=== PATIENT | female | born 1945 | race Caucasian/White ===

== ENCOUNTER 2016-11-12 16:07 | Emergency (ER) | payer MEDICARE, OTHER ==
--- NOTE | ~2016-11-12 | CR72 ---
[facility] A Service of [facility] RADIOLOGY TEXT RESULTS PATIENT: MAINOR SALGUERO LOCATION: [facility] : 43 UNIT #: [id number] AGE: [address]: Clark Grajeda MD SEX: F ORDER DR: [id number] [facility] [address]. [place], [place] [address] [id number] E MR#: [id number] Acc #: [id number] NAME: MAINOR SALGUERO : 1945 SEX: F STUDY DATE/TIME: 11/12/2016 15:48 UNIT: [facility] ROOM: STUDY DESCRIPTION: CR Chest Single View Portable Attending Physician: Clark Grajeda M.D. Referring Physician: Miguel Jimenez Sr., M.D. Ordering Physician: Clark Grajeda M.D. Primary Care Physician: Miguel Jimenez Sr., M.D. MEDICAL IMAGING REPORT This report is preliminary unless electronic signature is present EXAM Portable chest. DATE OF EXAM 11/12/2016 HISTORY Weakness today. FINDINGS The cardiac size and pulmonary vascularity are normal. No infiltrates or effusions. Calcified left hilar nodes. Old healed fractures lateral right fourth and fifth ribs. Old healed fracture deformity midshaft right clavicle. Mild gaseous distension of the colon in the upper abdomen. IMPRESSION 1. No acute findings. No evidence of active disease in the lungs. 2. Mild gaseous distension of the colon in the upper abdomen could reflect colonic ileus. 3. Old healed fracture deformity midshaft right clavicle and old fractures lateral right fourth and fifth ribs. Dictated by... Lanre Singh M.D. THIS IS AN ELECTRONICALLY VERIFIED REPORT Lanre Singh M.D. at 11/12/2016 11:25 PM MARCEL/matias TD: 11/12/2016 16:30 JOB #: [id number] [facility] A Service of [facility] RADIOLOGY TEXT RESULTS PATIENT: MAINOR SALGUERO LOCATION: [facility] #: [id number] : 43 UNIT #: [id number] AGE: [address]: Clark Grajeda MD SEX: F ORDER DR: MEDICAL IMAGING REPORT Page 1 of 1 COPY
--- NOTE | ~2016-11-12 | EKG ---
PATIENT: MAINOR SALGUERO UNIT #: [id number] Ventricular Rate: 77 BPM Atrial Rate: 77 BPM P-R Interval: 158 ms QRS Duration: 78 ms Q-T Interval: 370 ms QTC Calculation(Bezet): 418 ms P Stock[place]: 80 degrees Calculated R [place]: 56 degrees Calculated T Stock[place]: 61 degrees Diagnosis Line: Normal sinus rhythm Diagnosis Line: Normal ECG Diagnosis Line: When compared with ECG of 21-JUN-2016 14:00, Diagnosis Line: No significant change was found Diagnosis Line: Confirmed by CHANTALE RUIZ MD ([id number]) on 11/12/2016 Diagnosis Line: 9:24:07 PM INTERPRETING MD: JOSEPH HASSAN
--- NOTE | ~2016-11-12 | CT71 ---
[facility] A Service of [facility] RADIOLOGY TEXT RESULTS PATIENT: MAINOR SALGUERO LOCATION: [facility] : 43 UNIT #: [id number] AGE: [address]: Clark Grajeda MD SEX: F ORDER DR: [id number] [facility] [address] [place], [place] [address] [id number] E MR#: [id number] Acc #: [id number] NAME: MAINOR SALGUERO : 1945 SEX: F STUDY DATE/TIME: 11/12/2016 17:16 UNIT: [facility] ROOM: STUDY DESCRIPTION: CT Head Wo Contrast Attending Physician: Clark Grajeda M.D. Referring Physician: Miguel Jimenez Sr., M.D. Ordering Physician: Clark Grajeda M.D. Primary Care Physician: Miguel Jimenez Sr., M.D. MEDICAL IMAGING REPORT This report is preliminary unless electronic signature is present EXAM CT head without IV contrast. DATE OF EXAM 11/12/2016 COMPARISON September 19, 2014. INDICATIONS 71-year-old female with weakness since this morning. TECHNIQUE NOTE: This CT exam was performed with one or more of the following radiation dose reduction techniques: automatic exposure control, adjustment of mA and/or kV according to patient size, and iterative reconstruction. FINDINGS The globes have a persistent abnormal appearance with internal calcification. This patient also appears to have mildly asymmetric atrophy of the left optic nerve compared to the right. 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 Clinical correlation recommended. There is a persistent large right mastoid effusion with stable small right middle ear effusion. There is new thickening of the lott of the right external ear canal possibly reflecting otitis externa. There is mild mucosal thickening of the right maxillary sinus. No paranasal sinus air-fluid levels. Left mastoid air cells and middle ear are well-aerated aside for trace left mastoid effusion. No acute fractures or suspicious osseous lesions. No focal osseous destruction. There are calcifications of the cavernous internal carotid arteries. There is stable mild cerebral volume loss with disproportionate moderate to severe cerebellar volume loss. No mass effect. No abnormal extraaxial fluid collection. No evidence of acute STS. [facility] A Service of [facility] RADIOLOGY TEXT RESULTS PATIENT: MAINOR SALGUERO LOCATION: [facility] : 43 UNIT #: [id number] AGE: [address]: Clark Grajeda MD SEX: F ORDER DR: intracranial hemorrhage or acute intracranial ischemia. There is an extraaxial structure which appears partly calcified overlying the left parietal lobe, stable from comparison either representing a very small, partly calcified meningioma or possibly an exostosis from inner table of the calvaria. Focal hyperdensity, along one of the sulci of the temporal lobe posteriorly is stable from 2006 also possibly representing a small meningioma. This measures up to 4 mm. When allowing for motion, there are stable areas of focal white matter hypoattenuation and the subcortical left frontal lobe in the subcortical left temporal lobe most consistent with chronic small vessel ischemic change. No convincing evidence of acute ischemia. Similar area of subcortical hypoattenuation in the right temporal lobe is also stable, again consistent with small vessel ischemic change. IMPRESSION 1. New thickening of the skin of the right external ear canal possibly reflecting otitis externa. There is otherwise stable large right mastoid effusion and stable small right middle ear effusion. Clinical correlation to exclude signs of acute otitis media and/or mastoiditis on the right recommended. 2. Stable trace left mastoid effusion. 3. New mucosal thickening of the right maxillary sinus without air fluid level. 4. Stable mild cerebral volume loss and mild chronic small vessel ischemic changes as described in the body of the report. 5. Calcium densities in the extraaxial space along the left parietal and temporal lobes are stable going back to 2006, most likely reflecting very small, partly calcified meningiomas. 6. Stable abnormal appearance of the globes with internal calcifications and suggestion of optic nerve atrophy. 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 7. Stable asymmetric volume loss seen diffusely throughout the cerebellum as compared to the cerebrum, this is a finding which may be congenital or can be seen in chronic anticonvulsant medication. Dictated by... Donald Melendez M.D. THIS IS AN ELECTRONICALLY VERIFIED REPORT Donald Melendez M.D. at 11/17/2016 8:51 AM BLM/jt TD: 11/12/2016 19:23 JOB #: [id number] MEDICAL IMAGING REPORT Page 1 of 1 COPY
[~2016-11-12 16:07] MED LIST: ACETAMINOP650 MG/SU1 PR; ACETAMINOPHEN PO; ACETAMINOPHEN PR; ACETAMINOPHEN650 M1 PO; ACETAMINOPHEN650 M4 PO; APAP/CODEINE PO; AUGMENTIN PO; AURALGAN EAR DR14 ML OT; BACID; BISACODYL10 MG/SUPP PR; CALCIUM CITRATE1 T15 PO; CENTRUM PO; CERTAGEN PO; CIPRO PO; CITRACAL + D CA1 TA1; CITRACAL + D CA1 TA1 PO; CITRATE OF MAG296 ML PO; CLARITIN R10 MG REDI PO; COLACE PO; CYTOTEC PO; DIASTAT ACUDIAL1 KIT; DIASTAT ACUDIAL1 KIT PR; DIASTAT10 MG PR; DOK100 MG PO; DULCOLAX10 MG/SUPP; DULCOLAX10 MG/SUPP PR; ENEMA BAG1 EACH PR; FENOFIBRATE48 MG PO; FLAGYL PO; FLEET ENEMA133 M1 PR; FLEET MINERAL133 ML PR; FLOXIN10 ML; FLOXIN10 ML OT; FORTEO750 MCG/3 INJ; GABAPENTIN300 M2 PO; GAS RELIEF125 MG PO; GAS RELIEF40 MG/0.1 PO; GENTLE LAXATIVE10 MG RC; LACTULOSE10 G/15 ML PO; LAXATIVE10 MG/SUPP PR; LEVAQUIN PO; LEVO-T50 MCG PO; LEVOTHYROXINE50 MC1; MACRODANTIN50 MG; MEVACOR PO; MEVACOR10 MG; MIACALCIN4 ML; MILK OF MAGNESIA PO; MIRALAX17 GM PO; MIRALAX255 GM; MIRALAX255 GM PO; MYLICON40 MG/0.1 PO; MYLICON40 MG/0.6; MYLICON40 MG/0.6 PO; NASALIDE INHALE25 ML; NASALIDE INHALE25 ML INH; NASALIDE25 ML; NEURONTIN PO; NEURONTIN100 MG PO; NEURONTIN300 MG PO; OMEPRAZOLE20 M1 PO; OYSTER CALCIUM500 MG PO; PHENERGAN PR; PRAVACHOL20 MG PO; PREVACID PO; PRILOSEC PO; PRILOSEC20 M1; PRILOSEC20 MG PO; ROBITUSSIN-DM120 ML PO; SENNA; SENNA CONCENTR8.6 MG PO; SENNA PO; SENOKOT60 M1 PO; SENOKOT60 ML PO; SYNTHROID PO; SYNTHROID0.05 MG PO; SYNTHROID75 MCG PO; TRICOR PO; TYLENOL W-CODEI1 TAB PO; TYLENOL325 M1 PO; VICODIN 5/500 T1 TAB PO; VITAMIN C PO; VITAMIN C500 M1 PO; VITAMIN C500 MG PO; VITAMIN D 4001 UDTAB PO; VITAMIN D1000 UNI1 PO; VITAMIN D1000 UNIT; ZEBETA5 MG PO; ZYRTEC PO; [UNRECOGNIZED DRUG - OTHER]; [UNRECOGNIZED DRUG - OTHER]; [UNRECOGNIZED DRUG - OTHER] INH; [UNRECOGNIZED DRUG - OTHER] PO; [UNRECOGNIZED DRUG - OTHER] PO; [UNRECOGNIZED DRUG - OTHER] RC
[2016-11-12 16:57] LABS: POC - CKMB 1.5 ng/mL (0.0-7.9); POC - TROPONIN <0.05 ng/mL (<=0.05)
[2016-11-12 17:09] LABS: BASOPHIL# 0.1 X10e3 (0-0.3); EOSINOPHIL# 1.7 X10e3 (0-0.7); EOSINOPHIL% 21.4 % (0.0-7.0); HEMATOCRIT 40.8 % (35.0-45.0); HEMOGLOBIN 13.1 gm/dL (12.0-16.0); LYMPHOCYTE# 1.7 X10e3 (1.0-3.5); MEAN CELL VOLUME 91.3 FL (83-96); MEAN CORPUSCULAR HEMOGLOBIN 29.3 PG (28-34); MEAN CORPUSCULAR HGB CONC 32.1 g/dL (30-36); MEAN PLATELET VOLUME 9.1 FL (6.5-11.5); MONOCYTE# 0.4 X10e3 (0-1.0); MONOCYTE% 4.6 % (3.0-12.0); PLATELET COUNT 279 X10e3 (140-420); RED BLOOD COUNT 4.47 X10e (3.90-5.30); RED CELL DISTRIBUTION WIDTH 13.6 % (11.0-15.5); WHITE BLOOD COUNT 7.8 X10e3 (4.0-10.5)
[2016-11-12 17:11] LABS: DIFF IND YES
[2016-11-12 17:21] LABS: ALBUMIN SERUM 4.1 g/dL (3.5-5.0); BILIRUBIN, DIRECT 0.1 mg/dL (0.0-0.2); BILIRUBIN,INDIRECT 0.5 mg/dL (0.0-0.9); BILIRUBIN,TOTAL 0.6 mg/dL (0.2-2.0); CALCIUM SERUM 9.9 mg/dL (8.4-10.2); CREATININE SERUM 0.4 mg/dL (0.6-1.4); GLOM FILT RATE Estimated 103.4 mL/min (>60); POTASSIUM 3.9 mmol/L (3.5-5.1); PROTEIN TOTAL SERUM 8.5 g/dL (6.0-8.3)
[2016-11-12 17:50] LABS: PLATELET ESTIMATE NORMAL (NORMAL)
[2016-11-12 18:32] LABS: URINE SOURCE CLEAN CATCH
[2016-11-12 18:53] LABS: URINE APPEARANCE TURBID; URINE BILIRUBIN NEG (NEG); URINE BLOOD NEG (NEG); URINE COLOR YELLOW; URINE GLUCOSE NEG (NEG); URINE KETONE NEG (NEG); URINE LEUKOCYTE ESTERASE 3+ (NEG); URINE NITRATE POS (NEG); URINE PROTEIN NEG (NEG); URINE SPECIFIC GRAVITY 1.014 (1.003-1.035)
[2016-11-12 18:56] LABS: CULTURE INDICATED? YES; URBCS1 AUWI 0-2 /[HPF] (0-2); URINE SQUAMOUS EPITHELIAL CELL OCC /[HPF]
[2016-11-12 19:05] LABS: URINE BACTERIA AUWI 2+ (NEGATIVE)
[2016-11-12 19:30] LABS: POC - CKMB <1.0 ng/mL (0.0-7.9); POC - TROPONIN <0.05 ng/mL (<=0.05)
[2017-05-06] MEDS ORDERED: UTI-STAT L3875 MG/31 PO (04:37)
[2017-05-06] MEDS ORDERED: FIBER-STAT15 GM/30 M PO (04:38)
[2017-05-06] MEDS ORDERED: TOBRAMYCIN40 MG/1 ML IV (04:40)
[2017-05-06] MEDS ORDERED: AUGMENTIN PO (04:41)
[2017-05-06] MEDS ORDERED: PYRIDIUM PO (04:42)
[2017-05-06] MEDS ORDERED: RISA-BID CAPLE1 EAC1 PO (04:43)
[2017-05-06] MEDS ORDERED: MIRALAX17 G2 PO (04:46)
[2017-05-06] MEDS ORDERED: FAST RELIEF LAX10 MG PR (04:48)
[2017-05-06] MEDS ORDERED: CERTA VITE9 MG/15 ML PO (04:50)
[2017-05-06] MEDS ORDERED: FENOGLIDE40 MG PO (04:50)
[2017-05-06] MEDS ORDERED: LYRICA75 MG PO (04:51)
[2017-05-06] MEDS ORDERED: LEVOTHYROXINE50 MCG PO (04:51)
[2017-05-06] MEDS ORDERED: MELATONIN3 MG PO ×2 (04:52→09:28)
[2017-05-06] MEDS ORDERED: SENNA8.6 M1 PO (04:54)
[2017-05-06] MEDS ORDERED: OMEPRAZOLE20 M1 PO (04:54)
[2017-05-06] MEDS ORDERED: SILACE60 MG/15 M PO ×2 (04:55→09:30)
[2017-05-06] MEDS ORDERED: VITAMIN C500 M7 PO (04:59)
[2017-05-06] MEDS ORDERED: VITAMIN D31000 UNIT PO ×2 (05:00→09:30)
[2017-05-06] MEDS ORDERED: BISACODYL1 GM PR (09:23)
[2017-05-06] MEDS ORDERED: CERTAVITE PO (09:24)
[2017-05-06] MEDS ORDERED: FENOFIBRATE48 MG PO (09:24)
[2017-05-06] MEDS ORDERED: FISH OIL 1,0001 EAC3 PO (09:25)
[2017-05-06] MEDS ORDERED: SYNTHROID25 MCG PO (09:25)
[2017-05-06] MEDS ORDERED: GAS RELIEF40 MG/0.1 PO (09:25)
[2017-05-06] MEDS ORDERED: HEPARIN LO (09:25)
[2017-05-06] MEDS ORDERED: LYRICA PO (09:25)
[2017-05-06] MEDS ORDERED: PRILOSEC PO (09:28)
[2017-05-06] MEDS ORDERED: MIRALAX119 GM PO (09:29)
[2017-05-06] MEDS ORDERED: MIRALAX17 GM PO (09:30)
[2017-05-06] MEDS ORDERED: VITAMIN C500 MG PO (09:30)
[2017-05-06] MEDS ORDERED: ZYRTEC10 M2 PO (09:31)
[2017-05-06] MEDS ORDERED: TYLENOL #3 PO (09:31)
[2017-05-06] MEDS ORDERED: ENEMA BOTTLE1 EACH PR (09:32)
[2017-05-06] MEDS ORDERED: SALINE NOSE SPR45 M1 (09:32)
[2017-05-06] MEDS ORDERED: [UNRECOGNIZED DRUG - OTHER] TOP (09:33)
[2017-05-06] MEDS ORDERED: NEOSPORIN TOP (09:33)
[2017-05-06] MEDS ORDERED: PATIENT'S PHARMACY (09:34)
== END 2016-11-12 22:20 | disposition home or self-care (01) ==
LOC: CED 16:07
PROVIDERS: Emergency Medicine
DX: N39.0 Urinary tract infection, site not specified (principal); R41.82 Altered mental status, unspecified; G40.909 Epilepsy, unspecified, not intractable, without status epilepticus
CPT/HCPCS: 36415; 51702; 70450; 71010; 80048; 80076; 81003; 82553; 82947; 84484; 85025; 87086; 87088; 87186; 93005; 99284; J0696

== ENCOUNTER 2016-11-25 05:30 | Inpatient (IN) | payer MEDICARE, OTHER ==
--- NOTE | ~2016-11-25 | DS ---
Unit #: [id number] #: [id number] Patient: MAINOR SALGUERO [id number] [address] [address] [id number] I MR#: [id number] NAME: MAINOR SALGUERO ROOM: 229 Age: 71 Sex: F Admission Date: 11/25/2016 : 1945 Discharge Date: 11/28/2016 Attending Physician: Josephine Em M.D. Primary Care Physician: Miguel Jimenez Sr., M.D. DISCHARGE SUMMARY FINAL DIAGNOSES 1. Fever which is resolved. 2. Possibility of urinary tract infection on admission with urinalysis showing 2+ leukocyte esterase but urine culture is negative. Please note patient received IV Rocephin during hospitalization, which is being discontinued at this time. 3. 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 4. Chronic mucoid otitis media. 5. Seizure disorder. 6. Mental retardation. 7. Hypothyroidism. DISCHARGE MEDICATIONS Continue home medications which are: 1. Vitamin D 2,000 units daily. 2. Fish oil capsule twice a day. 3. Vitamin C 500 mg daily. 4. Levothyroxine 50 mcg daily. 5. Calcium citrate and vitamin D one tablet b.i.d. 6. Omeprazole 20 mg daily. 7. Tylenol #3 b.i.d. as needed. 8. Multivitamin daily. 9. Fenofibrate 48 mg daily. 10. Senna four tablets b.i.d. 11. MiraLax 17 g t.i.d. 12. Colace 100 mg b.i.d. 13. Dulcolax as needed. 14. Cetirizine 10 mg daily. 15. Mylicon 1.5 mL p.o. q.i.d. 16. Neurontin 100 mg b.i.d. 17. Tylenol 650 mg q.6 p.r.n. 18. Maybe continue IV Merrem as suggested by ENT, Dr. Roberson. LAB WORKUP ON DISCHARGE CBC shows WBC 4.6, hemoglobin 12.1, hematocrit 37.1, platelet count 297. BMP shows sodium 143, potassium 4.2, chloride 107, BUN 21, creatinine 0.5, calcium 9.8, procalcitonin level less than 0.05. Lactic acid 0.8. Urine culture is no growth. Blood culture is normal. Chest x-ray was done on 11/25 which shows no active disease. Influenza A and B were done which were negative. HOSPITAL COURSE Ms. Mainor Salguero is a 71-year-old female, who is a resident of [facility], has a history of seizure disorder, profound mental retardation, Unit #: [id number] #: [id number] Patient: MAINOR SALGUERO hypothyroidism. The patient was sent from [facility] because of high fever. The patient was seen in ER and the patient's temp was 100.6 on admission and, since then, she has not spiked any temperature. There was a possibility of urinary tract infection. The patient was started on IV Rocephin and she has received it for the last three days. Urine culture was done which is no growth at this time. Blood cultures showed no growth. The patient has no leukocytosis. She is afebrile. We are going to discontinue IV Rocephin at this time. The patient has a history of chronic mastoiditis and right otitis media. The patient was receiving IV Merrem at [facility] as per Dr. Gamboa. I have reviewed the records and it seems like this is chronic but would advise to continue antibiotics if needed as requested by Dr. Roberson ENT. VITAL SIGNS ON DISCHARGE: Blood pressure 115/59. Respiratory rate 18. Pulse 63. Temperature 98.2. CHEST: Fair air entry. CARDIOVASCULAR: S1, S2. Regular rhythm. ABDOMEN: Soft. DISCHARGE INSTRUCTIONS 1. The patient is being discharged to [facility] in stable condition. 2. We have discontinued IV Rocephin at this time. 3. Followup ENT, Dr. Roberson, recommendation and follow up as needed. Dictated by... Rachel Silver TD: 11/28/2016 13:28 JOB #: [id number] DISCHARGE SUMMARY Page 1 of 1 X Josephine Em MD X DISCHARGE SUMMARY
--- NOTE | ~2016-11-25 | CR72 ---
[facility] A Service of [facility] RADIOLOGY TEXT RESULTS PATIENT: MAINOR SALGUERO LOCATION: [facility] : 43 UNIT #: [id number] AGE: [address]: Kings Hdez MD SEX: F ORDER DR: [id number] [facility] [address] [place], [place] [address] [id number] E MR#: [id number] Acc #: [id number] NAME: MAINOR SALGUERO : 1945 SEX: F STUDY DATE/TIME: 11/25/2016 5:45 UNIT: [facility] ROOM: STUDY DESCRIPTION: CR Chest Single View Portable Attending Physician: Kings Hdez M.D. Ordering Physician: Jigar Finnegan M.D. Primary Care Physician: Miguel Jimenez Sr., M.D. MEDICAL IMAGING REPORT This report is preliminary unless electronic signature is present EXAM Portable chest HISTORY Fever and shortness of air that started last night.. FINDINGS A portable view of the chest was obtained and compared with 11/12/16. The heart size and vascularity are normal. There is slight volume loss in the right hemithorax. Prior rib trauma. No infiltrates are visible. There has been no change. IMPRESSION No change from 11/12/16. No active disease. Dictated by... Alonso Hernandez M.D. THIS IS AN ELECTRONICALLY VERIFIED REPORT Alonso Hernandez M.D. at 11/25/2016 11:44 AM ANNABELLE/tamara TD: 11/25/2016 07:34 JOB #: [id number] MEDICAL IMAGING REPORT Page 1 of 1 COPY
--- NOTE | ~2016-11-25 | HP ---
Unit #: [id number] #: [id number] Patient: MAINOR SALGUERO [id number] [address] [place], [place] [address] [id number] I MR#: [id number] NAME: MAINOR SALGUERO ROOM: 229 Age: 71 Sex: F Admission Date: 11/25/2016 : 1945 Attending Physician: Josephine Em M.D. Primary Care Physician: Miguel Jimenez Sr., M.D. HISTORY AND PHYSICAL CHIEF COMPLAINT Fevers. HISTORY OF PRESENTING ILLNESS Miss Mainor Salguero is a 71-year-old female who has multiple medical problems and is a resident of [facility]. She was sent at 2 a.m. this morning for high fever. As per sitter, patient had a temperature of 103 last night. She was started on Merrem for questionable mastoiditis. This morning her fever would not get better, and that is why she was sent to the ER. On admission, patient's temperature was 100.6. The patient is not able to provide any history, and most of the history has been taken from the chart and from sitter. There is no history of nausea or vomiting and no history of any diarrhea. Patient does follow up with ENT physician and has chronic mucoid otitis media and also has chronic mastoiditis on the right side. Patient follows up with Dr. Roberson who is an ENT specialist. PAST MEDICAL HISTORY 1. History of mental retardation. 2. Seizure disorder. 3. Hypothyroidism. 4. History of colonic ileus in the past. 5. History of multiple UTIs in the past. 6. Chronic otitis media and chronic mastoiditis. PAST SURGICAL HISTORY 1. Sigmoidoscopy. 2. EGD. 3. 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 HOME MEDICATIONS 1. Dulcolax at bedtime p.r.n. 2. Tylenol 650 daily p.r.n. 3. Calcium citrate 1 twice daily. 4. Centrum 1 tablet daily. 5. Allergy pill cetirizine daily. 6. Colace 100 mg twice daily. 7. Fenofibrate 48 mg daily. 8. Neurontin 100 mg twice daily. 9. Mylicon 1.5 at 4 times daily. 10. Fish oil capsule twice daily. 11. Omeprazole 20 mg daily. 12. MiraLax 17 grams 3 times daily. 13. Senna 4 tablets twice daily. Unit #: [id number] #: [id number] Patient: MAINOR SALGUERO 14. Vitamin C 500 mg daily. 15. Vitamin D 2000 units daily. ALLERGIES SULFA MEDICATION. SOCIAL HISTORY Patient is a resident of [facility]. FAMILY HISTORY Unknown. REVIEW OF SYSTEMS As per History of Presenting Illness. PHYSICAL EXAMINATION GENERAL: Patient is lying in bed and does not seem to be in any respiratory distress. VITAL SIGNS: Blood pressure is 103/48, respiratory rate 20, pulse 75, temperature 98.8, and T-max was 100.6. HEENT: Head is normocephalic. CHEST: Fair air entry. No additional sounds. CARDIOVASCULAR: S1 and S2 positive. Regular rhythm. ABDOMEN: Soft. EXTREMITIES: Negative edema. Contractures are present. CENTRAL NERVOUS SYSTEM: Patient is nonverbal. DIAGNOSTIC STUDIES LABORATORY: CBC shows WBC of 12.4, hemoglobin 12.3, hematocrit 37.8, and platelet count of 295,000. Sodium 136, potassium 3.9, chloride 100, BUN 23, and creatinine 0.7. Influenza A and B are negative. Urinalysis was done which showed 2+ leukocyte esterase. Lactic acid 0.7. IMAGING: Chest x-ray shows normal. No active disease. ASSESSMENT Patient is being admitted to medical/surgical unit with: 1. Fever. 2. Urinary tract infection. 3. Chronic mastoiditis. 4. Chronic mucoid otitis media. 5. Seizure disorder. 6. Mental retardation. 7. Hypothyroidism. PLAN Admit to med/surg. IV Rocephin is being started. Blood cultures will be done. Urine culture will be sent. Home medications have been reviewed and adjusted. Note from ENT has been evaluated which states that patient does have chronic mastoiditis and chronic serous otitis media. Continue tube feeds as per [place] facility. Medication check has been done. Please refer to progress note for further orders. Dictated by Rachel Silver Unit #: [id number] #: [id number] Patient: MAINOR SALGUERO TD: 11/25/2016 22:02 JOB #: [id number] HISTORY AND PHYSICAL Page 1 of 1 X Josephine Em MD HISTORY AND PHYSICAL
--- NOTE | ~2016-11-25 | A ---
[facility] Nutrition Therapy DATE: 11/26/16 Patient: MAINOR SALGUERO Physician: ANTONIO Address: [facility]/ Room/Bed: [address] [place] [address], Zip: [place] [address] Admit Date: 11/25/16 Date of : 43 Height: 5 0 Weight: 83 37.9 NUTRITIONAL ASSESSMENT: REASON: LOW BMI PT IS 71 Y.O. FEMALE ADMITTED FOR UTI, FEVER PMH: PROFOUND MENTAL RETARDATION, BLINDESS, DEAF, SEIZURE DISORDER, HLD, DYSPHAGIA, GERD, HYPOTHYROIDISM, COLONIC ILEUS Anthropometrics: 57 INCHES PER [facility], WT: 83# (38 KG), BMI: 18.0, 92%IBW Labs: WNL Meds: MIRALAX, SENOKOT, FISH OIL, COLACE, OS-DIEUDONNE 500+D, PROTONIX, ASCORBIC ACID, SYNTHROID (PO), NACL I/O & Bowel function: 0/5, 2 BMs NOTED Skin Integrity: INTACT Estimated Nutrition Needs: INCREASED NUTRIENT NEEDS 2' PT UNDERWEIGHT, CURRENT CONDITION Assessment: CHART REVIEWED AND EVENTS NOTED. PT SEEN FOR LOW BMI. OF NOTE, PT NON-VERBAL FROM [facility] TRANSFERRED TO [facility] FOR UTI AND FEVER. PT RECEIVES HOME DIET OF PUREED + NECTAR THICK LIQUIDS. PER RN, PT TOOK BITES OF BREAKFAST AND DRANK ALL OF HER LIQUIDS ON TRAY. PER [employer], PT WEIGHTS HAVE BEEN STABLE. RD ASSESSED PT ON 04/22/16 AND ORDERED ENSURE PUDDING, WILL ORDER AT THIS ADMIT. RD TO FOLLOW. SEE RECOMMENDATIONS BELOW. Dx: UNDERWEIGHT R/T PMH AEB LOW BMI OF 18.0. -INADEQUATE NUTRIENT INTAKE R/T CURRENT CONDITION AEB RN REPORT ABOVE PT TAKING BITES OF FOODS. Intervention: 1. PUREED + HONEY-THICK LIQUID + 6 SMALL MEALS 2. ENSURE PUDDING BID Monitoring, Evaluation and Goals: 1. PO INTAKE; PROVIDE AND CONSUME ADEQUATE NUTRITION W/NO C/O N/V/D (PO>50%) 2. WEIGHTS; PROMOTE GRADUAL WEIGHT GAIN; PREVENT ANY WEIGHT LOSS 3. GI; PROMOTE REGULAR GI FUNCTION MONITOR: -PO INTAKE/APPETITE [facility] Nutrition Therapy DATE: 11/26/16 Patient: MAINOR SALGUERO Physician: ANTONIO Address: [facility] Room/Bed: [address], Zip: [place] [address] Admit Date: 11/25/16 Date of : 43 Height: 5 0 Weight: 83 37.9 -WEIGHTS -SUPPLEMENT INTAKE Recommendations: 1. CONTINUE CURRENT DIET ORDER ABOVE. OF NOTE, PT RECEIVES NECTAR THICK LIQUIDS AT [facility] 2. PLEASE ORDER ENSURE PUDDING BID W/MEALS FOR ADDITIONAL PROTEIN AND KCAL PT IS CLINICALLY UNDERWEIGHT 3. APPRECIATE FAMILY AND STAFF TO ENCOURAGE ADEQUATE KCAL AND PROTEIN INTAKE RD WILL F/U PER PROTOCOL PT IS MODERATELY COMPROMISED Respectfully, KEYONNA NATHAN MS, RD, LD Food and Nutritional Services [facility] cc: client file
[2016-11-25 05:20] LABS: HEMATOCRIT 37.8 % (35.0-45.0); HEMOGLOBIN 12.3 gm/dL (12.0-16.0); MEAN CELL VOLUME 90.6 FL (83-96); MEAN CORPUSCULAR HEMOGLOBIN 29.6 PG (28-34); RED BLOOD COUNT 4.17 X10e (3.90-5.30); WHITE BLOOD COUNT 12.4 X10e3 (4.0-10.5)
[2016-11-25 05:21] LABS: BASOPHIL# 0.1 X10e3 (0-0.3); BASOPHIL% 0.4 % (0-2.5); EOSINOPHIL# 0.6 X10e3 (0-0.7); EOSINOPHIL% 4.5 % (0.0-7.0); LYMPHOCYTE# 1.2 X10e3 (1.0-3.5); MEAN CORPUSCULAR HGB CONC 32.7 g/dL (30-36); MEAN PLATELET VOLUME 9.4 FL (6.5-11.5); MONOCYTE# 0.8 X10e3 (0-1.0); MONOCYTE% 6.8 % (3.0-12.0); NEUTROPHIL# 9.7 X10e3 (1.5-7.1); NEUTROPHIL% 78.3 % (40-75); PLATELET COUNT 295 X10e3 (140-420)
[2016-11-25 05:23] LABS: DIFF IND NO
[2016-11-25 05:52] LABS: BUN/CREATININE RATIO 32.85; CALCIUM SERUM 9.5 mg/dL (8.4-10.2); CREATININE SERUM 0.7 mg/dL (0.6-1.4); POTASSIUM 3.9 mmol/L (3.5-5.1)
[2016-11-25 07:42] LABS: INFLUENZA A NEG (NEG); INFLUENZA B NEG (NEG)
[2016-11-25 07:51] LABS: URINE APPEARANCE CLOUDY; URINE BILIRUBIN NEG (NEG); URINE BLOOD NEG (NEG); URINE COLOR YELLOW; URINE GLUCOSE NEG (NEG); URINE KETONE NEG (NEG); URINE LEUKOCYTE ESTERASE 2+ (NEG); URINE NITRATE NEG (NEG); URINE PH 6.5 (5-8); URINE PROTEIN TRACE (NEG); URINE SPECIFIC GRAVITY 1.016 (1.003-1.035); URINE UROBILINOGEN 0.2 MG/DL (NEG)
[2016-11-25 07:54] LABS: CULTURE INDICATED? YES; URINE BACTERIA AUWI NEG (NEGATIVE); URINE SQUAMOUS EPITHELIAL CELL FEW /[HPF]
[2016-11-25 08:07] LABS: URINE SOURCE CATH
[2016-11-25] MEDS ORDERED: DULCOLAX10 MG PR (12:04)
[2016-11-25] MEDS ORDERED: ACETAMINOPHEN650 M3 PO ×2 (12:05→12:19)
[2016-11-25] MEDS ORDERED: CALCIUM CITRAT1 EAC2 PO (12:06)
[2016-11-25] MEDS ORDERED: CENTRUM PO (12:06)
[2016-11-25] MEDS ORDERED: DOCUSATE SODIU100 MG PO (12:07)
[2016-11-25] MEDS ORDERED: ALL DAY ALLERGY10 M3 PO (12:07)
[2016-11-25] MEDS ORDERED: FENOFIBRATE48 MG PO (12:08)
[2016-11-25] MEDS ORDERED: NEURONTIN100 MG PO (12:08)
[2016-11-25] MEDS ORDERED: NEURONTIN600 MG PO (12:09)
[2016-11-25] MEDS ORDERED: MYLICON40 MG/0.1 PO (12:10)
[2016-11-25] MEDS ORDERED: FISH OIL 1,0001 EAC1 PO (12:11)
[2016-11-25] MEDS ORDERED: OMEPRAZOLE20 M2 PO (12:11)
[2016-11-25] MEDS ORDERED: MIRALAX17 GM PO (12:13)
[2016-11-25] MEDS ORDERED: SENNA8.6 M1 PO (12:15)
[2016-11-25] MEDS ORDERED: VITAMIN C500 M1 PO (12:15)
[2016-11-25] MEDS ORDERED: VITAMIN D2000 UNIT PO (12:16)
[2016-11-25] MEDS ORDERED: TIROSINT50 MCG PO (12:17)
[2016-11-25] MEDS ORDERED: FEVERALL650 MG PR (12:20)
[2016-11-25] MEDS ORDERED: TYLENOL #3 PO (12:25)
[2016-11-27 06:13] LABS: HEMATOCRIT 37.2 % (35.0-45.0); HEMOGLOBIN 11.9 gm/dL (12.0-16.0); MEAN CELL VOLUME 91.2 FL (83-96); MEAN CORPUSCULAR HEMOGLOBIN 29.2 PG (28-34); MEAN CORPUSCULAR HGB CONC 32.1 g/dL (30-36); MEAN PLATELET VOLUME 9.1 FL (6.5-11.5); RED BLOOD COUNT 4.08 X10e (3.90-5.30); RED CELL DISTRIBUTION WIDTH 13.6 % (11.0-15.5); WHITE BLOOD COUNT 5.6 X10e3 (4.0-10.5)
[2016-11-27 06:54] LABS: BLOOD UREA NITROGEN 21 mg/dL (9-23); CALCIUM SERUM 9.8 mg/dL (8.4-10.2); CARBON DIOXIDE 27 mmol/L (22-31); CHLORIDE 107 mmol/L (100-111); CREATININE SERUM 0.5 mg/dL (0.6-1.4); GLUCOSE FASTING 83 mg/dL (70-110); POTASSIUM 4.2 mmol/L (3.5-5.1); SODIUM 143 mmol/L (135-145)
[2016-11-27 07:40] LABS: PROCALCITONIN <0.05 NG/ML
[2016-11-28 09:28] LABS: EOSINOPHIL# 0.7 X10e3 (0-0.7); EOSINOPHIL% 15.4 % (0.0-7.0); HEMATOCRIT 37.1 % (35.0-45.0); HEMOGLOBIN 12.1 gm/dL (12.0-16.0); LYMPHOCYTE% 43.1 % (17.0-45.0); MEAN CELL VOLUME 90.8 FL (83-96); MEAN CORPUSCULAR HEMOGLOBIN 29.5 PG (28-34); MEAN CORPUSCULAR HGB CONC 32.5 g/dL (30-36); MEAN PLATELET VOLUME 8.9 FL (6.5-11.5); MONOCYTE# 0.4 X10e3 (0-1.0); MONOCYTE% 7.9 % (3.0-12.0); NEUTROPHIL# 1.5 X10e3 (1.5-7.1); NEUTROPHIL% 32.6 % (40-75); PLATELET COUNT 297 X10e3 (140-420); RED BLOOD COUNT 4.09 X10e (3.90-5.30); WHITE BLOOD COUNT 4.6 X10e3 (4.0-10.5)
[2016-11-28 09:33] LABS: DIFF IND NO
[2017-05-06] MEDS ORDERED: UTI-STAT L3875 MG/31 PO (04:37)
[2017-05-06] MEDS ORDERED: FIBER-STAT15 GM/30 M PO (04:38)
[2017-05-06] MEDS ORDERED: TOBRAMYCIN40 MG/1 ML IV (04:40)
[2017-05-06] MEDS ORDERED: AUGMENTIN PO (04:41)
[2017-05-06] MEDS ORDERED: PYRIDIUM PO (04:42)
[2017-05-06] MEDS ORDERED: RISA-BID CAPLE1 EAC1 PO (04:43)
[2017-05-06] MEDS ORDERED: MIRALAX17 G2 PO (04:46)
[2017-05-06] MEDS ORDERED: FAST RELIEF LAX10 MG PR (04:48)
[2017-05-06] MEDS ORDERED: CERTA VITE9 MG/15 ML PO (04:50)
[2017-05-06] MEDS ORDERED: FENOGLIDE40 MG PO (04:50)
[2017-05-06] MEDS ORDERED: LYRICA75 MG PO (04:51)
[2017-05-06] MEDS ORDERED: LEVOTHYROXINE50 MCG PO (04:51)
[2017-05-06] MEDS ORDERED: MELATONIN3 MG PO ×2 (04:52→09:28)
[2017-05-06] MEDS ORDERED: SENNA8.6 M1 PO (04:54)
[2017-05-06] MEDS ORDERED: OMEPRAZOLE20 M1 PO (04:54)
[2017-05-06] MEDS ORDERED: SILACE60 MG/15 M PO ×2 (04:55→09:30)
[2017-05-06] MEDS ORDERED: VITAMIN C500 M7 PO (04:59)
[2017-05-06] MEDS ORDERED: VITAMIN D31000 UNIT PO ×2 (05:00→09:30)
[2017-05-06] MEDS ORDERED: BISACODYL1 GM PR (09:23)
[2017-05-06] MEDS ORDERED: FENOFIBRATE48 MG PO (09:24)
[2017-05-06] MEDS ORDERED: CERTAVITE PO (09:24)
[2017-05-06] MEDS ORDERED: SYNTHROID25 MCG PO (09:25)
[2017-05-06] MEDS ORDERED: GAS RELIEF40 MG/0.1 PO (09:25)
[2017-05-06] MEDS ORDERED: FISH OIL 1,0001 EAC3 PO (09:25)
[2017-05-06] MEDS ORDERED: LYRICA PO (09:25)
[2017-05-06] MEDS ORDERED: HEPARIN LO (09:25)
[2017-05-06] MEDS ORDERED: PRILOSEC PO (09:28)
[2017-05-06] MEDS ORDERED: MIRALAX119 GM PO (09:29)
[2017-05-06] MEDS ORDERED: VITAMIN C500 MG PO (09:30)
[2017-05-06] MEDS ORDERED: MIRALAX17 GM PO (09:30)
[2017-05-06] MEDS ORDERED: TYLENOL #3 PO (09:31)
[2017-05-06] MEDS ORDERED: ZYRTEC10 M2 PO (09:31)
[2017-05-06] MEDS ORDERED: SALINE NOSE SPR45 M1 (09:32)
[2017-05-06] MEDS ORDERED: ENEMA BOTTLE1 EACH PR (09:32)
[2017-05-06] MEDS ORDERED: [UNRECOGNIZED DRUG - OTHER] TOP (09:33)
[2017-05-06] MEDS ORDERED: NEOSPORIN TOP (09:33)
[2017-05-06] MEDS ORDERED: PATIENT'S PHARMACY (09:34)
== END 2016-11-28 14:36 | DRG 689 ==
LOC: CED 05:30 → CEDOF 12:15 → C2A 18:24
PROVIDERS: Emergency Medicine; Hospitalist; Physician Assistant Medical
DX: N39.0 Urinary tract infection, site not specified (principal); R53.2 Functional quadriplegia; F73 Profound intellectual disabilities; G40.909 Epilepsy, unspecified, not intractable, without status epilepticus; Z68.1 Body mass index [BMI] 19.9 or less, adult; H65.31 Chronic mucoid otitis media, right ear; H70.11 Chronic mastoiditis, right ear; E03.9 Hypothyroidism, unspecified; R63.6 Underweight
CPT/HCPCS: 36415; 51701; 71010; 80048; 81003; 82308; 83605; 85025; 85027; 87040; 87086; 87804; 99285; J0696; J1650

== ENCOUNTER → 2016-12-01 | Outpatient (CLI) | payer MEDICARE, OTHER ==
[~2016-12-01] MED LIST changes: +ACETAMINOPHEN650 M3 PO; +ALL DAY ALLERGY10 M3 PO; +APAP325 M1 PO; +BISACODYL1 GM PR; +CALCIUM CITRAT1 EAC2 PO; +CERTA VITE9 MG/15 ML PO; +CERTAVITE PO; +CIPRO HC OTIC S10 ML AD; +DEEP SEA NASAL SPRAY; +DOCUSATE SODIU100 MG PO; +DULCOLAX10 MG PR; +ENEMA BOTTLE1 EACH PR; +FAST RELIEF LAX10 MG PR; +FENOGLIDE40 MG PO; +FEVERALL650 MG PR; +FIBER-STAT15 GM/30 M PO; +FISH OIL 1,0001 EAC1 PO; +FISH OIL 1,0001 EAC3 PO; +HEPARIN LO; +LEVOTHYROXINE50 MCG PO; +LYRICA PO; +LYRICA75 MG PO; +MELATONIN3 MG PO; +MIRALAX119 GM PO; +MIRALAX17 G2 PO; +NEOSPORIN TOP; +NEURONTIN600 MG PO; +OMEGA 3 1,0001 EACH PO; +OMEPRAZOLE20 M2 PO; +PATIENT'S PHARMACY; +PYRIDIUM PO; +RISA-BID CAPLE1 EAC1 PO; +SALINE NOSE SPR45 M1; +SENNA8.6 M1 PO; +SILACE60 MG/15 M PO; +SYNTHROID25 MCG PO; +TIROSINT50 MCG PO; +TOBRAMYCIN40 MG/1 ML IV; +TYLENOL #3 PO; +UTI-STAT L3875 MG/31 PO; +VITAMIN C500 M7 PO; +VITAMIN D2000 UNIT PO; +VITAMIN D31000 UNIT PO; +ZYRTEC10 M1 PO; +ZYRTEC10 M2 PO; +[UNRECOGNIZED DRUG - MIXTURE]; +[UNRECOGNIZED DRUG - OTHER] PR; +[UNRECOGNIZED DRUG - OTHER] TOP
--- NOTE | ~2016-12-01 | XA166 ---
[facility] A Service of [facility] RADIOLOGY TEXT RESULTS PATIENT: MAINOR SALGUERO LOCATION: [facility] : 43 UNIT #: [id number] AGE: [address]: JEN HOFFMANN SEX: F ORDER DR: [id number] [facility] [address] [place], [place] [address] [id number] O MR#: [id number] Acc #: [id number] NAME: MAINOR SALGUERO : 1945 SEX: F STUDY DATE/TIME: 12/01/2016 11:47 UNIT: [facility] ROOM: STUDY DESCRIPTION: XA PICC Line Placement WO Port Attending Physician: Jen Hoffmann Referring Physician: Jen Hoffmann Primary Care Physician: Miguel Jimenez Sr., M.D. MEDICAL IMAGING REPORT This report is preliminary unless electronic signature is present EXAM PICC line placement HISTORY Need for IV access in a [place] patient who requires antibiotics. She has a history of fever and shortness of breath. PRE-PROCEDURE The procedure was explained to the patient and/or patient outside sales account representative including risks, benefits, potential complications and potential for alternative forms of treatment. Informed consent was obtained, and prior to initiating the procedure a formal timeout procedure was performed. PROCEDURE Using full standard sterile barrier technique, including caps, gowns, gloves, masks, as well as sterile skin preparation and standard sterile draping, the arm was prepped and draped in the usual fashion, and real-time sterile ultrasound guidance was used to localize an arm vein and to confirm vessel patency. A hard copy ultrasound image was recorded. After local anesthesia with 1% Xylocaine, the vein was punctured using real-time sterile ultrasound guidance, and an 0.018 guidewire was advanced into the superior vena cava, using fluoroscopic guidance. A 4-Omani single lumen PICC was then measured and deployed with the tip positioned in the superior vena cava. The position of the line was documented with a radiographic image. The line was secured in place with an adhesive dressing and an antibiotic patch was applied. Total fluoro time was 0.1 minutes. Ak was 1 mGy. IMPRESSION Successful placement of a 4-Omani single-lumen PowerPICC via the right arm under ultrasound and fluoroscopic guidance. The tip of the PICC is in STS. [facility] A Service of [facility] RADIOLOGY TEXT RESULTS PATIENT: MAINOR SALGUERO LOCATION: [facility] : 43 UNIT #: [id number] AGE: [address]: JEN HOFFMANN SEX: F ORDER DR: good position in the superior vena cava. Dictated by... Modesta Woodson M.D. THIS IS AN ELECTRONICALLY VERIFIED REPORT Modesta Woodson M.D. at 12/02/2016 12:55 PM SAHARA/tamara TD: 12/02/2016 09:53 JOB #: [id number] MEDICAL IMAGING REPORT Page 1 of 1 COPY
== END | disposition home or self-care (01) ==
LOC: CIVR 10:53
PROC: 02HV33Z Insertion of Infusion Device into Superior Vena Cava, Percutaneous Approach (ICD-10-PCS; principal; 2016-12-01)
DX: Z45.2 Encounter for adjustment and management of vascular access device (principal); H70.10 Chronic mastoiditis, unspecified ear; H66.91 Otitis media, unspecified, right ear; J98.11 Atelectasis; K59.39 Other megacolon; K59.00 Constipation, unspecified
CPT/HCPCS: 76937; 77001; C1751; J1642

== ENCOUNTER → 2016-12-23 | Outpatient (CLI) | payer MEDICARE, OTHER ==
--- NOTE | ~2016-12-23 | CT71 ---
[facility] A Service of [facility] RADIOLOGY TEXT RESULTS PATIENT: MAINOR SALGUERO LOCATION: [facility] : 43 UNIT #: [id number] AGE: [address]: JEN HOFFMANN SEX: F ORDER DR: [id number] [facility] [address] [place], [place] [address] [id number] O MR#: [id number] Acc #: [id number] NAME: MAINOR SALGUERO : 1945 SEX: F STUDY DATE/TIME: 12/23/2016 11:03 UNIT: [facility] ROOM: STUDY DESCRIPTION: CT Head Wo Contrast Attending Physician: Jen Hoffmann Referring Physician: Jen Hoffmann Primary Care Physician: Miguel Jimenez Sr., M.D. MEDICAL IMAGING REPORT This report is preliminary unless electronic signature is present EXAM Head CT no contrast DATE OF STUDY 12/23/2016 PROCEDURE Axial unenhanced head CT. This CT exam was performed with one or more of the following radiation dose reduction techniques: automatic exposure control, adjustment of mA and/or kV according to patient size, and iterative reconstruction. COMPARISON Prior head CT 11/12/2016. CLINICAL HISTORY Recent diagnosis of right mastoiditis treated with myringotomy. No new symptoms. Routine follow-up. FINDINGS Persistent stable opacification of the right mastoids, with slightly improved pneumatization of the right middle ear on these head CT images. No bone erosion or destruction. There is profound cerebellar atrophy and moderate cerebral volume loss but no acute intracranial abnormality. IMPRESSION 1. Persistent right mastoid air cell opacification, perhaps slightly improved right middle ear aeration on the current CT when compared to 11/12/2016. Chronic changes Intracranially appear stable. 2. Mild motion degradation. [facility] A Service [facility] RADIOLOGY TEXT RESULTS PATIENT: MAINOR SALGUERO LOCATION: [facility] : 43 UNIT #: [id number] AGE: [address]: JEN HOFFMANN SEX: F ORDER DR: Dictated by... Rob Prince M.D. THIS IS AN ELECTRONICALLY VERIFIED REPORT Rob Prince M.D. at 12/25/2016 3:58 PM TEV/aa TD: 12/23/2016 16:11 JOB #: [id number] MEDICAL IMAGING REPORT Page 1 of 1 COPY
== END | disposition home or self-care (01) ==
LOC: CCAT 10:20
DX: H70.11 Chronic mastoiditis, right ear (principal); R93.8 Abnormal findings on diagnostic imaging of other specified body structures
CPT/HCPCS: 70450

== ENCOUNTER 2017-01-14 18:29 | Emergency (ER) | payer MEDICARE, OTHER ==
--- NOTE | ~2017-01-14 | CR72 ---
[facility] A Service of [facility] RADIOLOGY TEXT RESULTS PATIENT: MAINOR SALGUERO LOCATION: [facility] : 43 UNIT #: [id number] AGE: [address]: Kings Hernandez MD SEX: F ORDER DR: [id number] [facility] [address] [place], [place] [address] [id number] MR#: [id number] Acc #: [id number] NAME: MAINOR SALGUERO : 1945 SEX: F STUDY DATE/TIME: 01/14/2017 19:16 UNIT: [facility] ROOM: STUDY DESCRIPTION: CR Chest Single View Portable Attending Physician: Miguel Hernandez M.D. Ordering Physician: Ed Trevor Barbosa M.D. Primary Care Physician: Miguel Jimenez Sr., M.D. MEDICAL IMAGING REPORT This report is preliminary unless electronic signature is present EXAM Chest x-ray, single-view portable. HISTORY Short of air, abnormal labs, symptoms began today. COMMENT Single frontal portable view of the chest timed 19:16, 01/14/2017, compared to 11/25/2016. There is top normal heart size. There is severe distortion of pulmonary parenchymal architecture consistent with underlying chronic obstructive lung disease. No focal alveolar infiltrate, acute congestive failure, pneumothorax or pleural effusion is suspected. There is an old right clavicle fracture healed with deformity. There is new lucency under the right hemidiaphragm, which is worrisome for possible free air versus an interposed distended/air-filled colonic loop. Correlate clinically. On review of abdomen and pelvis CT of 07/15/2016, it is apparent that there is distended gas-filled colon on that study and that probably accounts for the appearance on the current chest x-ray. IMPRESSION 1. Severe chronic obstructive lung disease. No acute abnormality appreciated in the chest. 2. There is air seen under the right hemidiaphragm, which is probably air within a distended loop of colon interposed between the liver and the diaphragm. This appearance was noted on a previous CT, 07/15/2016. Please correlate further with the patient's clinical symptoms to exclude any concern for free air. Dictated by... Cathy Hanson M.D. [facility] A Service of [facility] RADIOLOGY TEXT RESULTS PATIENT: MAINOR SALGUERO LOCATION: [facility] : 43 UNIT #: [id number] AGE: [address]: Kings Hernandez MD SEX: F ORDER DR: THIS IS AN ELECTRONICALLY VERIFIED REPORT Cathy Hanson M.D. at 01/15/2017 2:25 PM SAC/olivia TD: 01/15/2017 07:26 JOB #: [id number] MEDICAL IMAGING REPORT Page 1 of 1 COPY
[~2017-01-14 18:29] MED LIST changes: -APAP325 M1 PO; -BISACODYL1 GM PR; -CERTA VITE9 MG/15 ML PO; -CERTAVITE PO; -CIPRO HC OTIC S10 ML AD; -DEEP SEA NASAL SPRAY; -ENEMA BOTTLE1 EACH PR; -FAST RELIEF LAX10 MG PR; -FENOGLIDE40 MG PO; -FIBER-STAT15 GM/30 M PO; -FISH OIL 1,0001 EAC3 PO; -HEPARIN LO; -LEVOTHYROXINE50 MCG PO; -LYRICA PO; -LYRICA75 MG PO; -MELATONIN3 MG PO; -MIRALAX119 GM PO; -MIRALAX17 G2 PO; -NEOSPORIN TOP; -OMEGA 3 1,0001 EACH PO; -PATIENT'S PHARMACY; -PYRIDIUM PO; -RISA-BID CAPLE1 EAC1 PO; -SALINE NOSE SPR45 M1; -SILACE60 MG/15 M PO; -SYNTHROID25 MCG PO; -TOBRAMYCIN40 MG/1 ML IV; -UTI-STAT L3875 MG/31 PO; -VITAMIN C500 M7 PO; -VITAMIN D31000 UNIT PO; -ZYRTEC10 M1 PO; -ZYRTEC10 M2 PO; -[UNRECOGNIZED DRUG - MIXTURE]; -[UNRECOGNIZED DRUG - OTHER] PR; -[UNRECOGNIZED DRUG - OTHER] TOP
[2017-01-14 20:52] LABS: BASOPHIL% 0.2 % (0-2.5); DIFF IND YES; EOSINOPHIL# 0.6 X10e3 (0-0.7); EOSINOPHIL% 3.8 % (0.0-7.0); HEMATOCRIT 34.8 % (35.0-45.0); HEMOGLOBIN 11.5 gm/dL (12.0-16.0); LYMPHOCYTE% 12.3 % (17.0-45.0); MEAN CELL VOLUME 88.4 FL (83-96); MEAN CORPUSCULAR HEMOGLOBIN 29.2 PG (28-34); MEAN CORPUSCULAR HGB CONC 33.1 g/dL (30-36); MEAN PLATELET VOLUME 9.4 FL (6.5-11.5); MONOCYTE# 0.6 X10e3 (0-1.0); NEUTROPHIL# 12.8 X10e3 (1.5-7.1); NEUTROPHIL% 79.7 % (40-75); PLATELET COUNT 246 X10e3 (140-420); RED BLOOD COUNT 3.94 X10e (3.90-5.30); RED CELL DISTRIBUTION WIDTH 13.2 % (11.0-15.5)
[2017-01-14 21:06] LABS: PROTHROMBIN TIME (PATIENT) 10.5 SECONDS (9.6-11.5)
[2017-01-14 21:10] LABS: CALCIUM SERUM 9.7 mg/dL (8.4-10.2); CREATININE SERUM 0.6 mg/dL (0.6-1.4); GLOM FILT RATE Estimated 90.4 mL/min (>60); POTASSIUM 3.8 mmol/L (3.5-5.1)
[2017-01-14 21:13] LABS: PLATELET ESTIMATE NORMAL (NORMAL)
[2017-05-06] MEDS ORDERED: UTI-STAT L3875 MG/31 PO (04:37)
[2017-05-06] MEDS ORDERED: FIBER-STAT15 GM/30 M PO (04:38)
[2017-05-06] MEDS ORDERED: TOBRAMYCIN40 MG/1 ML IV (04:40)
[2017-05-06] MEDS ORDERED: AUGMENTIN PO (04:41)
[2017-05-06] MEDS ORDERED: PYRIDIUM PO (04:42)
[2017-05-06] MEDS ORDERED: RISA-BID CAPLE1 EAC1 PO (04:43)
[2017-05-06] MEDS ORDERED: MIRALAX17 G2 PO (04:46)
[2017-05-06] MEDS ORDERED: FAST RELIEF LAX10 MG PR (04:48)
[2017-05-06] MEDS ORDERED: FENOGLIDE40 MG PO (04:50)
[2017-05-06] MEDS ORDERED: CERTA VITE9 MG/15 ML PO (04:50)
[2017-05-06] MEDS ORDERED: LYRICA75 MG PO (04:51)
[2017-05-06] MEDS ORDERED: LEVOTHYROXINE50 MCG PO (04:51)
[2017-05-06] MEDS ORDERED: MELATONIN3 MG PO ×2 (04:52→09:28)
[2017-05-06] MEDS ORDERED: OMEPRAZOLE20 M1 PO (04:54)
[2017-05-06] MEDS ORDERED: SENNA8.6 M1 PO (04:54)
[2017-05-06] MEDS ORDERED: SILACE60 MG/15 M PO ×2 (04:55→09:30)
[2017-05-06] MEDS ORDERED: VITAMIN C500 M7 PO (04:59)
[2017-05-06] MEDS ORDERED: VITAMIN D31000 UNIT PO ×2 (05:00→09:30)
[2017-05-06] MEDS ORDERED: BISACODYL1 GM PR (09:23)
[2017-05-06] MEDS ORDERED: FENOFIBRATE48 MG PO (09:24)
[2017-05-06] MEDS ORDERED: CERTAVITE PO (09:24)
[2017-05-06] MEDS ORDERED: GAS RELIEF40 MG/0.1 PO (09:25)
[2017-05-06] MEDS ORDERED: LYRICA PO (09:25)
[2017-05-06] MEDS ORDERED: FISH OIL 1,0001 EAC3 PO (09:25)
[2017-05-06] MEDS ORDERED: HEPARIN LO (09:25)
[2017-05-06] MEDS ORDERED: SYNTHROID25 MCG PO (09:25)
[2017-05-06] MEDS ORDERED: PRILOSEC PO (09:28)
[2017-05-06] MEDS ORDERED: MIRALAX119 GM PO (09:29)
[2017-05-06] MEDS ORDERED: MIRALAX17 GM PO (09:30)
[2017-05-06] MEDS ORDERED: VITAMIN C500 MG PO (09:30)
[2017-05-06] MEDS ORDERED: TYLENOL #3 PO (09:31)
[2017-05-06] MEDS ORDERED: ZYRTEC10 M2 PO (09:31)
[2017-05-06] MEDS ORDERED: SALINE NOSE SPR45 M1 (09:32)
[2017-05-06] MEDS ORDERED: ENEMA BOTTLE1 EACH PR (09:32)
[2017-05-06] MEDS ORDERED: [UNRECOGNIZED DRUG - OTHER] TOP (09:33)
[2017-05-06] MEDS ORDERED: NEOSPORIN TOP (09:33)
[2017-05-06] MEDS ORDERED: PATIENT'S PHARMACY (09:34)
== END 2017-01-14 23:10 ==
LOC: CED 18:29
PROVIDERS: Emergency Medicine
DX: R11.10 Vomiting, unspecified (principal); Z88.2 Allergy status to sulfonamides; Z88.8 Allergy status to other drugs, medicaments and biological substances; Z79.899 Other long term (current) drug therapy
CPT/HCPCS: 36415; 71010; 80048; 83880; 85025; 85610; 87040; 99283

== ENCOUNTER 2017-02-17 19:49 | Emergency (ER) | payer MEDICARE, OTHER ==
[2017-02-17 20:46] LABS: BASOPHIL% 0.5 % (0-2.5); EOSINOPHIL# 1.6 X10e3 (0-0.7); EOSINOPHIL% 22.6 % (0.0-7.0); HEMATOCRIT 38.9 % (35.0-45.0); HEMOGLOBIN 12.7 gm/dL (12.0-16.0); LYMPHOCYTE# 1.6 X10e3 (1.0-3.5); LYMPHOCYTE% 23.5 % (17.0-45.0); MEAN CELL VOLUME 90.6 FL (83-96); MEAN CORPUSCULAR HEMOGLOBIN 29.6 PG (28-34); MEAN CORPUSCULAR HGB CONC 32.6 g/dL (30-36); MEAN PLATELET VOLUME 8.9 FL (6.5-11.5); MONOCYTE# 0.4 X10e3 (0-1.0); MONOCYTE% 6.5 % (3.0-12.0); NEUTROPHIL# 3.2 X10e3 (1.5-7.1); NEUTROPHIL% 46.9 % (40-75); PLATELET COUNT 259 X10e3 (140-420); WHITE BLOOD COUNT 6.9 X10e3 (4.0-10.5)
[2017-02-17 20:48] LABS: DIFF IND YES
[2017-02-17 21:07] LABS: ANISOCYTOSIS SL; PLATELET ESTIMATE NORMAL (NORMAL)
[2017-02-17 21:08] LABS: ALBUMIN SERUM 4.1 g/dL (3.5-5.0); ALKALINE PHOSPHATASE 68 U/L (32-92); ALT (SGPT) 20 U/L (10-40); AST (SGOT) 24 U/L (10-42); BILIRUBIN, DIRECT <0.1 mg/dL (0.0-0.2); BILIRUBIN,INDIRECT 0.5 mg/dL (0.0-0.9); BILIRUBIN,TOTAL 0.6 mg/dL (0.2-2.0); BLOOD UREA NITROGEN 30 mg/dL (9-23); CARBON DIOXIDE 29 mmol/L (22-31); CHLORIDE 105 mmol/L (100-111); CREATININE SERUM 0.4 mg/dL (0.6-1.4); GLOM FILT RATE Estimated 103.4 mL/min (>60); GLUCOSE FASTING 109 mg/dL (70-110); POTASSIUM 4.3 mmol/L (3.5-5.1); PROTEIN TOTAL SERUM 8.2 g/dL (6.0-8.3); SODIUM 140 mmol/L (135-145)
[2017-02-17 21:12] LABS: INR 0.9; PARTIAL THROMBOPLASTIN TIME 23.5 SECONDS (23.5-31.3); PROTHROMBIN TIME (PATIENT) 10.2 SECONDS (10.0-11.7)
[2017-02-18] MEDS ORDERED: LYRICA75 MG PO (04:50)
[2017-02-18] MEDS ORDERED: CIPRO HC OTIC S10 ML AD (04:52)
[2017-05-06] MEDS ORDERED: UTI-STAT L3875 MG/31 PO (04:37)
[2017-05-06] MEDS ORDERED: FIBER-STAT15 GM/30 M PO (04:38)
[2017-05-06] MEDS ORDERED: TOBRAMYCIN40 MG/1 ML IV (04:40)
[2017-05-06] MEDS ORDERED: AUGMENTIN PO (04:41)
[2017-05-06] MEDS ORDERED: PYRIDIUM PO (04:42)
[2017-05-06] MEDS ORDERED: RISA-BID CAPLE1 EAC1 PO (04:43)
[2017-05-06] MEDS ORDERED: MIRALAX17 G2 PO (04:46)
[2017-05-06] MEDS ORDERED: FAST RELIEF LAX10 MG PR (04:48)
[2017-05-06] MEDS ORDERED: FENOGLIDE40 MG PO (04:50)
[2017-05-06] MEDS ORDERED: CERTA VITE9 MG/15 ML PO (04:50)
[2017-05-06] MEDS ORDERED: LEVOTHYROXINE50 MCG PO (04:51)
[2017-05-06] MEDS ORDERED: LYRICA75 MG PO (04:51)
[2017-05-06] MEDS ORDERED: MELATONIN3 MG PO ×2 (04:52→09:28)
[2017-05-06] MEDS ORDERED: SENNA8.6 M1 PO (04:54)
[2017-05-06] MEDS ORDERED: OMEPRAZOLE20 M1 PO (04:54)
[2017-05-06] MEDS ORDERED: SILACE60 MG/15 M PO ×2 (04:55→09:30)
[2017-05-06] MEDS ORDERED: VITAMIN C500 M7 PO (04:59)
[2017-05-06] MEDS ORDERED: VITAMIN D31000 UNIT PO ×2 (05:00→09:30)
[2017-05-06] MEDS ORDERED: BISACODYL1 GM PR (09:23)
[2017-05-06] MEDS ORDERED: CERTAVITE PO (09:24)
[2017-05-06] MEDS ORDERED: FENOFIBRATE48 MG PO (09:24)
[2017-05-06] MEDS ORDERED: LYRICA PO (09:25)
[2017-05-06] MEDS ORDERED: GAS RELIEF40 MG/0.1 PO (09:25)
[2017-05-06] MEDS ORDERED: HEPARIN LO (09:25)
[2017-05-06] MEDS ORDERED: FISH OIL 1,0001 EAC3 PO (09:25)
[2017-05-06] MEDS ORDERED: SYNTHROID25 MCG PO (09:25)
[2017-05-06] MEDS ORDERED: PRILOSEC PO (09:28)
[2017-05-06] MEDS ORDERED: MIRALAX119 GM PO (09:29)
[2017-05-06] MEDS ORDERED: VITAMIN C500 MG PO (09:30)
[2017-05-06] MEDS ORDERED: MIRALAX17 GM PO (09:30)
[2017-05-06] MEDS ORDERED: ZYRTEC10 M2 PO (09:31)
[2017-05-06] MEDS ORDERED: TYLENOL #3 PO (09:31)
[2017-05-06] MEDS ORDERED: SALINE NOSE SPR45 M1 (09:32)
[2017-05-06] MEDS ORDERED: ENEMA BOTTLE1 EACH PR (09:32)
[2017-05-06] MEDS ORDERED: NEOSPORIN TOP (09:33)
[2017-05-06] MEDS ORDERED: [UNRECOGNIZED DRUG - OTHER] TOP (09:33)
[2017-05-06] MEDS ORDERED: PATIENT'S PHARMACY (09:34)
== END 2017-02-17 23:50 | disposition home or self-care (01) ==
LOC: CED 19:49
PROVIDERS: Emergency Medicine
DX: N28.9 Disorder of kidney and ureter, unspecified (principal); Z71.1 Person with feared health complaint in whom no diagnosis is made; Z88.8 Allergy status to other drugs, medicaments and biological substances; Z88.2 Allergy status to sulfonamides
CPT/HCPCS: 36415; 80048; 80076; 85025; 85610; 85730; 96360; 99285; J2543

== ENCOUNTER 2017-02-18 01:24 | Inpatient (IN) | payer MEDICARE, OTHER ==
--- NOTE | ~2017-02-18 | CR72 ---
[facility] A Service of [facility] RADIOLOGY TEXT RESULTS PATIENT: MAINOR SALGUERO LOCATION: [facility] : 43 UNIT #: [id number] AGE: [address]: Josephine Em MD SEX: F ORDER DR: [id number] [facility] [address] [place], [place] [address] [id number] I MR#: [id number] #: [id number] NAME: MAINOR SALGUERO : 1945 SEX: F STUDY DATE/TIME: 02/18/2017 1:51 UNIT: [facility] ROOM: [facility] STUDY DESCRIPTION: CR Chest Single View Portable Attending Physician: Josephine Em M.D. Ordering Physician: Kings Hdez M.D. Primary Care Physician: Miguel Jimenez Sr., M.D. MEDICAL IMAGING REPORT This report is preliminary unless electronic signature is present EXAM Single view chest. INDICATION Fever for 1 day. Cough and tachycardia. TECHNIQUE Single, portable, AP view of the chest compared to 01/14/2017. FINDINGS The heart and mediastinal contours are unchanged. There is background COPD and chronic interstitial changes in both lungs. There is slightly increased density in the left lower lobe. Correlate for any evidence of pneumonia. Dilated loops of bowel in the upper abdomen are similar to the prior studies. IMPRESSION 1. COPD with chronic interstitial changes. 2. Slight increase in interstitial opacities in the left lung base. Correlate for any evidence of an early pneumonia. Dictated by... Eloy Francois M.D. THIS IS AN ELECTRONICALLY VERIFIED REPORT Eloy Francois M.D. at 02/18/2017 11:38 PM YADI/johan TD: 02/18/2017 11:35 JOB #: [id number] [facility] A Service of [facility] RADIOLOGY TEXT RESULTS PATIENT: MAINOR SALGUERO LOCATION: [facility] : 43 UNIT #: [id number] AGE: [address]: Josephine Em MD SEX: F ORDER DR: MEDICAL IMAGING REPORT Page 1 of 1 COPY
--- NOTE | ~2017-02-18 | CO ---
Unit #: [id number] #: [id number] Patient: MAINOR SALGUERO [id number] [address] [place], [place] [address] [id number] I MR#: [id number] NAME: MAINOR SALGUERO ROOM: 238 Age: 71 Sex: F Admission Date: 02/18/2017 : 1945 Attending Physician: Josephine Em M.D. Primary Care Physician: Miguel Jimenez Sr., M.D. Consultation Date: 02/19/2017 CONSULTATION REPORT REASON FOR CONSULTATION Antibiotic management in a patient with Staph. aureus bacteremia. HISTORY OF PRESENT ILLNESS This is a 71-year-old female who is mentally handicapped that lives at [facility]. Patient was sent to [facility] due to elevation of fever. There was some concern for healthcare-associated pneumonia. She was admitted to the hospital. She was started on vancomycin and Zosyn and given gentamicin x1. However, workup reveals two of two cultures with gram-positive cocci, one of which has grown Staph. aureus. Patient does not provide any history and this case was discussed with Dr. Gunderson at the time of consult (1) . PAST MEDICAL HISTORY Includes profound mental retardation, blindness, seizure disorder, dyslipidemia, sick sinus syndrome, history of C. diff. colitis, Arelis-Saman tear, osteoporosis, sigmoid volvulus, history of herpes, and upper respiratory infection. PAST SURGICAL HISTORY Reduction of sigmoid volvulus, excision of large lipoma in the left deltoid region. SOCIAL HISTORY Patient lives at [place], otherwise unknown. ALLERGIES Bactrim. MEDICATIONS 1. Vancomycin. 2. Zosyn. 3. Tobramycin. For other medications, please refer to patient's MAR. REVIEW OF SYSTEMS Unable to obtain secondary to patient's cooperation and mental status. PHYSICAL EXAMINATION VITAL SIGNS: Temperature 97.6 with a T max. of 101.3, pulse of 77, blood pressure 160/69 with a low blood pressure of 88/70, and respiratory rate of 16. GENERAL: This is a no apparent distress female who is contractured in a Unit #: [id number] #: [id number] Patient: MAINOR SALGUERO and does not speak. HEENT: Her pupils are not reactive secondary to blindness. CARDIOVASCULAR: S1 and S2, but difficult to listen secondary to patient's restlessness. PULMONARY: Clear to auscultation. ABDOMEN: Positive bowel sounds, otherwise unable to assess secondary to patient's restlessness and batting me away with her arms. EXTREMITIES: Contractures noted. No appearing abscesses, cuts, or abrasions. DIAGNOSTIC STUDIES LABORATORY: BUN 10, creatinine 0.4, sodium 139, potassium 3.8, chloride 112, CO2 22, bilirubin 0.5, AST 22, and ALT of 16. Amylase 17 and lipase 16. Lactic acid 0.9. Procalcitonin 0.33. White blood cell count 6.6, hemoglobin 10.8, hematocrit 34, and platelets 181. Urinary analysis is unremarkable. Microbiology data: 02/19 blood cultures have not been drawn yet. Blood cultures, 02/18, two of two 15 minutes apart with gram-positive cocci, 1 of which has grown Staph. aureus and final ID is currently pending. IMAGING: COPD with chronic interstitial changes with increasing opacities in the left lung base, possibly early pneumonia. IMPRESSION This is a 71-year-old, mentally retarded female that lives at [facility]. Patient was admitted secondary to fever and found to have two of two positive blood cultures for gram-positive cocci, one of which is Staph. aureus and final ID is currently pending. At this time, physical exam is difficult secondary to patient's restlessness and inability to cooperative with physical exam due to her mental status. Source of bacteremia is unclear. Patient's chest x-ray is not overwhelmingly impressive for pneumonia and there is a high concern for endovascular infection. Patient does not appear to have any metal or hardware and, at this time, agree with repeating blood cultures, vancomycin, and Zosyn. Patient will not require anymore tobramycin. Will attempt to get a 2D echocardiogram, but, due to patient's lack of cooperation, this may be difficult and patient may require a 4-week course of antibiotic therapy for possible endovascular infection, but this will be discussed with Dr. Jimi Neville. Patient's blood pressure and temperature have all improved since admission. Thank you for allowing us to participate in the care of this patient. Further recommendations to follow pending patient's clinical course. Dictated by... Suni Zhu/olivia TD: 02/19/2017 11:21 JOB #: [id number] Unit #: [id number] #: [id number] Patient: MAINOR SALGUERO CONSULTATION REPORT Page 1 of 1 X X CONSULTATION REPORT
--- NOTE | ~2017-02-18 | HP ---
Unit #: [id number] #: [id number] Patient: MAINOR SALGUERO [id number] [address] [address] [id number] I MR#: [id number] NAME: MAINOR SALGUERO ROOM: 238 Age: Sex: F Admission Date: 02/18/2017 : 1945 Attending Physician: Josephine Em M.D. Primary Care Physician: Miguel Jimenez Sr., M.D. HISTORY AND PHYSICAL ADMISSION DIAGNOSES 1. Questionable healthcare-acquired pneumonia. 2. History of mental retardation. 3. History of seizure disorder. 4. Anemia of chronic disease. 5. History of sick sinus syndrome. 6. Dyslipidemia. 7. History of blindness. 8. History of herpes. 9. History of sigmoid volvulus. HISTORY OF PRESENT ILLNESS Ms. Mainor Salguero is a 71-year-old mentally retarded female, patient of Dr. Em's, resident of [facility], who was transferred to the [facility] ER for the evaluation of fever. Initial chest x-ray was suspicious for pneumonia. The patient was started on the broad-spectrum IV antibiotics for healthcare-acquired pneumonia coverage and admitted. The patient is with profound mental retardation, nonverbal; therefore, I am not able to obtain any other history and neither am I able to obtain any review of systems. PAST MEDICAL HISTORY History of profound mental retardation, blindness, seizure disorder, dyslipidemia, sick sinus syndrome, history of C. diff. colitis in the past, history of Arelis-Saini tear, history of osteoporosis, sigmoid volvulus, history of herpes, history of frequent upper respiratory infections. PAST SURGICAL HISTORY Flexible sigmoidoscopy for the reduction of the sigmoid volvulus. Also, EGD and excision of enlarging lipoma on the left deltoid area. SOCIAL HISTORY The patient lives at [facility]. FAMILY HISTORY Unknown. ALLERGIES Bactrim. HOME MEDICATIONS 1. Dulcolax. 2. Calcium. Unit #: [id number] #: [id number] Patient: MAINOR SALGUERO 3. Vitamin D. 4. Multivitamins. 5. Cetirizine. 6. Colace. 7. Fenofibrate. 8. Mylicon. 9. Fish oil. 10. Omeprazole. 11. MiraLax. 12. Senna. 13. Vitamin C. 14. Vitamin D. 15. Levothyroxine. 16. Tylenol p.r.n. 17. Tylenol with Codeine #3. 18. Lyrica. 19. Cipro otic. PHYSICAL EXAMINATION GENERAL APPEARANCE: The patient is a 71-year-old mentally retarded female in no acute distress. VITAL SIGNS: Blood pressure 139/89. Heart rate 88. Respirations 12. Temperature 97.7. HEENT: Head is atraumatic. 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 Oropharynx clear with missing tooth. NECK: Supple. No mass. No JVD. No bruits. CARDIOVASCULAR: S1, S2. No murmurs. CHEST: Diminished bilaterally. ABDOMEN: Soft, nontender, nondistended. EXTREMITIES: Without any cyanosis, clubbing or edema. NEUROLOGIC: Unobtainable. DIAGNOSTIC STUDIES LABORATORY: Chemistry significant for potassium of 3.1, BUN and creatinine 18 and 0.4, bicarb 20. White count 11.6, hemoglobin and hematocrit 10.2 and 31.2. IMAGING: Questionable pneumonia. UA shows trace leukocyte esterase. ASSESSMENT AND PLAN 1. History of fever with the questionable HCAP. Continue IV antibiotics status post pulmonary evaluation. Bronchodilators p.r.n. 2. History of mental retardation. 3. History of seizure disorder. Continue home medications. Continue seizure precautions. 4. Anemia of chronic disease, monitor. 5. GI and DVT prophylaxis. Continue Protonix and SCDs. 6. UTI. Follow up on urine cultures. 7. 1. Dictated by Rachel Sorensen/duane TD: 02/19/2017 06:11 Unit #: [id number] #: [id number] Patient: MAINOR SALGUERO JOB #: [id number] HISTORY AND PHYSICAL Page 1 of 1 X Roberto Dasilva MD HISTORY AND PHYSICAL
--- NOTE | ~2017-02-18 | A ---
[facility] Nutrition Therapy DATE: 02/19/17 Patient: MAINOR SALGUERO Physician: ANTONIO Address: [facility]/ Room/Bed: [address] [place] [address], Zip: [place] [address] Admit Date: 02/18/17 Date of : 43 Height: Weight: 82 37.64 NUTRITIONAL ASSESSMENT: REASON: LOW BMI PT IS 71 Y.O. FEMALE ADMITTED FOR TACHYCARDIA, FEVER, PNA PMH: PROFOUND MENTAL RETARDATION, BLINDNESS & DEAF, HLD, SEIZURE DISORDER, GERD, DYSPHAGIA, HYPOTHYROIDISM, HERPES, SIGMOID VOLVULUS Anthropometrics: 57 INCHES PER [place] CHART, WT: 83# (38 KG), BMI: 18.0, 90%IBW Labs: CREAT: 0.4, ALB: 2.9, LIPASE: 16 Meds: KCL, MIRALAX, VITAMIN D, PROTONIX, FISH OIL, COLACE, OS-DIEUDONNE 250+D, SYNTHROID (PO) I/O & Bowel function: 1180/8, 1 BM NOTED Skin Integrity: NO KNOWN SKIN ISSUES Estimated Nutrition Needs: INCREASED NEEDS 2' PT UNDERWEIGHT, CURRENT CONDITION Assessment: CHART REVIEWED AND EVENTS NOTED. PT SEEN FOR LOW BMI. PT RESIDENT OF [place], NONVERBAL. PT OUT OF ROOM FOR PROCEDURE AT TIME OF VISIT. RD ATTEMPTED 2X TO SEE PT. PER RN AND CHART, PT NOTED TO HAVE PRIOR GOOD PO INTAKE AND APPETITE, FOLLOWING A PUREED DIET + NECTAR THICK LIQUID HOME DIET. LUNCH TRAY WAS AT BEDSIDE-NOTED PT CONSUMED ~40%. PER [place], WEIGHTS HAVE REMAINED STABLE. RD ASSESSED PT IN NOVEMBER 2016 AND ORDERED ENSURE PUDDING, RD TO ORDER. RD TO FOLLOW. Dx: UNDERWEIGHT R/T PMH AEB LOW BMI OF 18.0. Intervention: 1. PUREED + NECTAR THICK LIQUID DIET 2. ENSURE PUDDING BID Monitoring, Evaluation and Goals: 1. ORAL INTAKE; TOLERATE/CONSUME >50% OF MEALS AND SUPPLEMENTS 2. WEIGHTS; PROMOTE GRADUAL WEIGHT GAIN TOWARDS HEALTHY BMI, PREVENT WEIGHT LOSS 3. LABS; WNL 4. GI; PROMOTE REGULAR GI FUNCTION MONITOR: -PO INTAKE/APPETITE -WEIGHTS -SUPPLEMENT INTAKE [facility] Nutrition Therapy DATE: 02/19/17 Patient: MAINOR SALGUERO Physician: ANTONIO Address: [facility] Room/Bed: [address] [place] [address], Zip: [place] [address] Admit Date: 02/18/17 Date of : 43 Height: Weight: 82 37.64 Recommendations: 1. CONTINUE CURRENT DIET ORDER ABOVE (HOME DIET OF PUREED + NECTAR THICK LIQUID) 2. PLEASE ORDER ENSURE PUDDING BID FOR ADDITIONAL PROTEIN AND KCAL, PT UNDERWEIGHT 3. ENCOURAGE ADEQUATE PO INTAKE RD WILL F/U PER PROTOCOL PT IS MILD/MODERATELY COMPROMISED Respectfully, KEYONNA NATHAN MS, RD, LD Food and Nutritional Services [facility] cc: client file
--- NOTE | ~2017-02-18 | DS ---
Unit #: [id number] #: [id number] Patient: MAINOR SALGUERO [id number] [address] [address] [id number] I MR#: [id number] NAME: MAINOR SALGUERO ROOM: 241 Age: 71 Sex: F Admission Date: 02/18/2017 : 1945 Discharge Date: 02/23/2017 Attending Physician: Josephine Em M.D. Primary Care Physician: Miguel Jimenez Sr., M.D. DISCHARGE SUMMARY FINAL DIAGNOSES 1. 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 2. Possible pneumonia. 3. Bacteremia. 4. History of mental retardation. 5. History of seizure disorder. 6. History of hyperlipidemia. 7. History of blindness. 8. Anemia of chronic disease. 9. History of sigmoid volvulus chronically. DISCHARGE MEDICATIONS 1. IV vancomycin 500 mg q.12 through April 02, 2017. 2. Continue rest of the home medications. CONSULTATIONS DURING HOSPITALIZATION 1. Dr. Gunderson and Dr. Myron Barrera from pulmonary services. 2. Dr. Neville from infectious disease services. DIAGNOSTIC STUDIES LABORATORY: Lab workup on discharge: Sodium 137, potassium 3.5, chloride 108, BUN 7, creatinine 0.4, magnesium 1.8. WBC 5.2, hemoglobin 11.4, hematocrit 35.5, and platelet count 263,000. Urine culture: No growth. Repeat blood culture which was done on February 19 was negative. Blood culture from February 18 showed MRSA positive. Lactic acid on admission was 2.2. PROCEDURE Procedure performed during hospitalization was echocardiogram which showed mobile vegetation was visualized in non coronary cusp measuring 1.2 x 0.6 cm. Ejection fraction is (1) estimated at 45% to 50%, borderline generalized hypokinesis of the left ventricle are noted, mild concentric left ventricular hypertrophy is present. HOSPITAL COURSE Ms. Mainor Salguero is a 71-year-old female who is a resident of [facility], has a history of significant mental retardation, was admitted because of evaluation of fever. Initial x-ray showed suspicious for pneumonia. Patient was started on broad-spectrum IV antibiotics. Patient was found to have bacteremia which was positive for MRSA. Infectious disease was consulted. Echocardiogram was done. The patient has aortic valve vegetation. Patient was started on vancomycin. That needs to be continued for a total of six weeks. Patient is doing better. The patient is afebrile. PICC line will be placed today as the repeat blood cultures Unit #: [id number] #: [id number] Patient: MAINOR SALGUERO are negative. Patient will be discharged back to [facility] to continue and complete the course of antibiotics. The patient's renal function needs to be observed closely during hospitalization. PHYSICAL EXAMINATION On discharge: VITAL SIGNS: Blood pressure 111/89, respiratory rate 16, pulse 92, temperature 98.5, oxygen saturation is 97%. CHEST: Fair air entry, decreased at the bases. CARDIOVASCULAR: Regular rhythm. ABDOMEN: Soft. DISCHARGE INSTRUCTIONS The patient will be discharged home in stable condition. FOLLOWUP BMP twice a week and weekly CBC while on antibiotic. If creatinine is more than 1.2, recommend to call ID for change of antibiotics. [place] pharmacy to dose and adjust the vancomycin. PICC line will be placed and that needs to be discontinued after the last dose of vancomycin. Rest of the medications as per med rec. Dictated by... Rachel Silver TD: 02/23/2017 10:55 JOB #: [id number] DISCHARGE SUMMARY Page 1 of 1 X Josephine Em MD X DISCHARGE SUMMARY
--- NOTE | ~2017-02-18 | XA166 ---
[facility] A Service of [facility] RADIOLOGY TEXT RESULTS PATIENT: MAINOR SALGUERO LOCATION: [facility] : 43 UNIT #: [id number] AGE: [address]: Josephine Em MD SEX: F ORDER DR: [id number] [facility] [address]. [place], [place] [address] [id number] I MR#: [id number] Acc #: [id number] NAME: MAINOR SALGUERO : 1945 SEX: F STUDY DATE/TIME: 02/23/2017 13:44 UNIT: [facility] ROOM: [facility] STUDY DESCRIPTION: XA PICC Line Placement WO Port Attending Physician: Josephine Em M.D. Ordering Physician: Josephine Em M.D. Primary Care Physician: Miguel Jimenez Sr., M.D. MEDICAL IMAGING REPORT This report is preliminary unless electronic signature is present EXAM PICC line placement INDICATION IV antibiotics PRE-PROCEDURE The procedure was explained to the patient and/or patient telephone sales representative including risks, benefits, potential complications and potential for alternative forms of treatment. Informed consent was obtained, and prior to initiating the procedure a formal timeout procedure was performed. PROCEDURE The patient's right arm was ultrasounded and the right basilic and brachial veins were thrombosed and therefore the left side had to be used. Using full standard sterile barrier technique, including caps, gowns, gloves, masks, as well as sterile skin preparation and standard sterile draping, the left arm was prepped and draped in the usual fashion, and real-time sterile ultrasound guidance was used to localize an arm vein and to confirm vessel patency. A hard copy ultrasound image was recorded. After local anesthesia with 1% Xylocaine, the vein was punctured using real-time sterile ultrasound guidance, and an 0.018 guidewire was advanced into the superior vena cava, using fluoroscopic guidance. A 4 Hebrew single-lumen 38.0 cm PICC was then measured and deployed with the tip positioned in the superior vena cava. The position of the line was documented with a radiographic image. The line was secured in place with an adhesive dressing and an antibiotic patch was applied. Total fluoro time was 0.5 minutes. The reference air kerma was 2 mGy. IMPRESSION Successful left arm PICC line placement. [facility] A Service of [facility] RADIOLOGY TEXT RESULTS PATIENT: MAINOR SALGUERO LOCATION: [place] [address] : 43 UNIT #: [id number] AGE: [address]: Josephine Em MD SEX: F ORDER DR: Dictated by... Angus Madrid M.D. THIS IS AN ELECTRONICALLY VERIFIED REPORT Angus Madrid M.D. at 02/25/2017 7:44 AM Valentina TD: 02/24/2017 08:48 JOB #: [id number] MEDICAL IMAGING REPORT Page 1 of 1 COPY
--- NOTE | ~2017-02-18 | CO ---
Unit #: [id number] #: [id number] Patient: MAINOR SALGUERO [id number] [address] [place], [place] [address] [id number] MR#: [id number] NAME: MAINOR SALGUERO ROOM: 238 Age: 71 Sex: F Admission Date: 02/18/2017 : 1945 Attending Physician: Josephine Em M.D. Primary Care Physician: Miguel Jimenez Sr., M.D. Consultation Date: 02/18/2017 CONSULTATION REPORT REASON FOR CONSULTATION Fever, possible pneumonia. HISTORY OF PRESENT ILLNESS This is a 71-year-old female with profound mental retardation, lives at [place], who cannot add to the history. Apparently had fever, presented to the emergency room. She was given saline, Tylenol and broad-spectrum antibiotics. Again, she is nonverbal. The sitter with her is not familiar with her. PAST MEDICAL HISTORY According to previous H and P's in the EHR, she has profound mental retardation, seizure disorder, hypothyroidism, history of multiple UTIs, chronic otitis media, chronic mastoiditis. MEDICATIONS Medications, according to her med/rec list, include a variety of vitamins and bowel prep p.r.n. medications. Prilosec, Synthroid and Lyrica seem to be the only real medicines she takes. ALLERGIES Sulfa and neostigmine. SOCIAL HISTORY Lives at [place]. FAMILY HISTORY Unobtainable. REVIEW OF SYSTEMS Unobtainable. PHYSICAL EXAMINATION VITAL SIGNS: Examination reveals a patient who had T max of 101.3, now 99, pulse 84, respiratory rate 12, blood pressure 88/70. GENERAL: She fights exam. HEENT: Cannot really examine her eyes, as she keeps her eyes closed. She appears to be edentulous, but again, she does not allow oral examination. CHEST: She moaned throughout auscultation but no definite consolidation, wheeze or stridor. CARDIAC EXAMINATION: Regular rate and rhythm. No definite pathologic murmur, rub or gallop. ABDOMEN: Abdomen is soft, nontender. No hepatomegaly or rebound. EXTREMITIES: Extremities appear contracted. Unit #: [id number] #: [id number] Patient: MAINOR SALGUERO NEUROLOGIC: She closed her eyes, would not cooperate with any type of neurologic assessment. Further exam, again, very limited. DIAGNOSTIC STUDIES LABORATORY EXAMINATION: BUN is 18, creatinine 0.4. Potassium is 3.1. INR normal. Cardiac enzymes negative. White blood cell count 11.6, hemoglobin 10.2, platelet count 199. Urinalysis - Trace leukocyte esterase, no pyuria, 5-10 red cells. Blood cultures performed and are pending. She has had Enterococcus urinary tract infections in the past, which were vancomycin resistant. IMAGING: Chest x-ray - Somewhat dark film. It appears that she has some bibasilar infiltrates, although fairly faint. IMPRESSION 1. Fever. Suspect pneumonia. Likely aspiration. She apparently is on nectar-thick liquids at [place]. 2. Mental retardation. 3. Seizure disorder. 4. History of urinary tract infections, including VRE. PLAN Antibiotics. Follow up cultures. Will ask for urine to be sent, as well. I will check a procalcitonin level. Most likely an organism will not be recovered and we will deescalate antibiotics if blood cultures are negative. Consider repeat swallow evaluation unless recently performed at [place]. Thank you very much for allowing me to participate in the care of Ms. Salguero. Dictated by... Isidro Gunderson M.D. JOMAR/douglas TD: 02/18/2017 14:15 JOB #: [id number] CONSULTATION REPORT Page 1 of 1 X Isidro Gunderson MD X CONSULTATION REPORT
[2017-02-18 03:03] LABS: URINE SOURCE CLEAN CATCH
[2017-02-18 03:08] LABS: URINE APPEARANCE CLOUDY; URINE BILIRUBIN NEG (NEG); URINE BLOOD NEG (NEG); URINE COLOR YELLOW; URINE GLUCOSE NEG (NEG); URINE KETONE NEG (NEG); URINE LEUKOCYTE ESTERASE TRACE (NEG); URINE NITRATE NEG (NEG); URINE PH 7.5 (5-8); URINE PROTEIN NEG (NEG); URINE SPECIFIC GRAVITY 1.016 (1.003-1.035)
[2017-02-18 03:11] LABS: URINE BACTERIA AUWI NEG (NEGATIVE); URINE SQUAMOUS EPITHELIAL CELL NONE SEEN /[HPF]; UWBCS1 AUWI 0-2 (0-5)
[2017-02-18 03:13] LABS: CULTURE INDICATED? NO
[2017-02-18 04:05] LABS: POC - CKMB <1.0 ng/mL (0.0-7.9); POC - TROPONIN <0.05 ng/mL (<=0.05)
[2017-02-18] MEDS ORDERED: LYRICA75 MG PO (04:50)
[2017-02-18] MEDS ORDERED: CIPRO HC OTIC S10 ML AD (04:52)
[2017-02-18 06:20] LABS: BASOPHIL% 0.3 % (0-2.5); EOSINOPHIL# 0.1 X10e3 (0-0.7); EOSINOPHIL% 0.8 % (0.0-7.0); HEMATOCRIT 31.2 % (35.0-45.0); LYMPHOCYTE# 0.9 X10e3 (1.0-3.5); LYMPHOCYTE% 8.1 % (17.0-45.0); MEAN CELL VOLUME 90.8 FL (83-96); MEAN CORPUSCULAR HEMOGLOBIN 29.7 PG (28-34); MEAN CORPUSCULAR HGB CONC 32.7 g/dL (30-36); MEAN PLATELET VOLUME 9.4 FL (6.5-11.5); MONOCYTE# 0.6 X10e3 (0-1.0); MONOCYTE% 5.3 % (3.0-12.0); NEUTROPHIL# 9.9 X10e3 (1.5-7.1); NEUTROPHIL% 85.5 % (40-75); PLATELET COUNT 199 X10e3 (140-420); RED BLOOD COUNT 3.44 X10e (3.90-5.30); RED CELL DISTRIBUTION WIDTH 13.9 % (11.0-15.5); WHITE BLOOD COUNT 11.6 X10e3 (4.0-10.5)
[2017-02-18 06:21] LABS: DIFF IND NO; HEMOGLOBIN 10.2 gm/dL (12.0-16.0)
[2017-02-18 06:47] LABS: ALBUMIN SERUM 2.9 g/dL (3.5-5.0); BILIRUBIN, DIRECT 0.1 mg/dL (0.0-0.2); BILIRUBIN,INDIRECT 0.4 mg/dL (0.0-0.9); BILIRUBIN,TOTAL 0.5 mg/dL (0.2-2.0); CREATININE SERUM 0.4 mg/dL (0.6-1.4); GLOM FILT RATE Estimated 103.4 mL/min (>60); POTASSIUM 3.1 mmol/L (3.5-5.1); PROTEIN TOTAL SERUM 5.7 g/dL (6.0-8.3)
[2017-02-18 06:49] LABS: CALCIUM SERUM 7.4 mg/dL (8.4-10.2)
[2017-02-19 04:33] LABS: HEMOGLOBIN 10.8 gm/dL (12.0-16.0); MEAN CELL VOLUME 92.1 FL (83-96); MEAN CORPUSCULAR HEMOGLOBIN 29.3 PG (28-34); MEAN CORPUSCULAR HGB CONC 31.9 g/dL (30-36); MEAN PLATELET VOLUME 9.1 FL (6.5-11.5); RED BLOOD COUNT 3.69 X10e (3.90-5.30); RED CELL DISTRIBUTION WIDTH 14.1 % (11.0-15.5); WHITE BLOOD COUNT 6.6 X10e3 (4.0-10.5)
[2017-02-19 05:09] LABS: CALCIUM SERUM 8.8 mg/dL (8.4-10.2); CREATININE SERUM 0.4 mg/dL (0.6-1.4); GLOM FILT RATE Estimated 103.4 mL/min (>60); POTASSIUM 3.8 mmol/L (3.5-5.1)
[2017-02-20 09:59] LABS: HEMATOCRIT 35.4 % (35.0-45.0); HEMOGLOBIN 11.5 gm/dL (12.0-16.0); MEAN CELL VOLUME 90.3 FL (83-96); MEAN CORPUSCULAR HEMOGLOBIN 29.4 PG (28-34); MEAN CORPUSCULAR HGB CONC 32.5 g/dL (30-36); MEAN PLATELET VOLUME 8.7 FL (6.5-11.5); RED BLOOD COUNT 3.92 X10e (3.90-5.30); RED CELL DISTRIBUTION WIDTH 13.8 % (11.0-15.5); WHITE BLOOD COUNT 7.1 X10e3 (4.0-10.5)
[2017-02-20 11:43] LABS: BUN/CREATININE RATIO 23.33; CREATININE SERUM 0.3 mg/dL (0.6-1.4); GLOM FILT RATE Estimated 113.6 mL/min (>60); POTASSIUM 3.7 mmol/L (3.5-5.1)
[2017-02-21 11:25] LABS: BASOPHIL% 0.5 % (0-2.5); EOSINOPHIL# 1.2 X10e3 (0-0.7); EOSINOPHIL% 20.7 % (0.0-7.0); HEMATOCRIT 41.7 % (35.0-45.0); HEMOGLOBIN 13.4 gm/dL (12.0-16.0); LYMPHOCYTE# 1.4 X10e3 (1.0-3.5); MEAN CELL VOLUME 90.5 FL (83-96); MEAN CORPUSCULAR HGB CONC 32.1 g/dL (30-36); MONOCYTE# 0.4 X10e3 (0-1.0); MONOCYTE% 6.5 % (3.0-12.0); NEUTROPHIL# 2.9 X10e3 (1.5-7.1); NEUTROPHIL% 48.3 % (40-75); PLATELET COUNT 276 X10e3 (140-420); RED BLOOD COUNT 4.61 X10e (3.90-5.30); RED CELL DISTRIBUTION WIDTH 13.8 % (11.0-15.5); WHITE BLOOD COUNT 5.9 X10e3 (4.0-10.5)
[2017-02-21 11:26] LABS: DIFF IND YES
[2017-02-21 11:35] LABS: BUN/CREATININE RATIO 17.5; CALCIUM SERUM 9.9 mg/dL (8.4-10.2); CREATININE SERUM 0.4 mg/dL (0.6-1.4); GLOM FILT RATE Estimated 103.4 mL/min (>60); POTASSIUM 3.7 mmol/L (3.5-5.1)
[2017-02-21 11:52] LABS: PLATELET ESTIMATE NORMAL (NORMAL)
[2017-02-22 06:14] LABS: HEMATOCRIT 35.7 % (35.0-45.0); MEAN CELL VOLUME 90.3 FL (83-96); MEAN CORPUSCULAR HEMOGLOBIN 28.8 PG (28-34); MEAN CORPUSCULAR HGB CONC 31.9 g/dL (30-36); MEAN PLATELET VOLUME 8.3 FL (6.5-11.5); RED BLOOD COUNT 3.95 X10e (3.90-5.30); RED CELL DISTRIBUTION WIDTH 13.9 % (11.0-15.5); WHITE BLOOD COUNT 5.3 X10e3 (4.0-10.5)
[2017-02-22 06:19] LABS: HEMOGLOBIN 11.4 gm/dL (12.0-16.0)
[2017-02-22 06:53] LABS: BUN/CREATININE RATIO 17.5; CALCIUM SERUM 9.3 mg/dL (8.4-10.2); CREATININE SERUM 0.4 mg/dL (0.6-1.4); GLOM FILT RATE Estimated 103.4 mL/min (>60); POTASSIUM 3.3 mmol/L (3.5-5.1)
[2017-02-23 06:04] LABS: HEMATOCRIT 35.5 % (35.0-45.0); HEMOGLOBIN 11.4 gm/dL (12.0-16.0); MEAN CELL VOLUME 90.9 FL (83-96); MEAN CORPUSCULAR HEMOGLOBIN 29.2 PG (28-34); MEAN CORPUSCULAR HGB CONC 32.1 g/dL (30-36); MEAN PLATELET VOLUME 8.8 FL (6.5-11.5); RED BLOOD COUNT 3.9 X10e (3.90-5.30); RED CELL DISTRIBUTION WIDTH 13.6 % (11.0-15.5); WHITE BLOOD COUNT 5.2 X10e3 (4.0-10.5)
[2017-02-23 06:52] LABS: BUN/CREATININE RATIO 17.5; CALCIUM SERUM 9.2 mg/dL (8.4-10.2); CREATININE SERUM 0.4 mg/dL (0.6-1.4); GLOM FILT RATE Estimated 103.4 mL/min (>60); MAGNESIUM 1.8 mg/dL (1.6-3.0); POTASSIUM 3.5 mmol/L (3.5-5.1)
[2017-05-06] MEDS ORDERED: UTI-STAT L3875 MG/31 PO (04:37)
[2017-05-06] MEDS ORDERED: FIBER-STAT15 GM/30 M PO (04:38)
[2017-05-06] MEDS ORDERED: TOBRAMYCIN40 MG/1 ML IV (04:40)
[2017-05-06] MEDS ORDERED: AUGMENTIN PO (04:41)
[2017-05-06] MEDS ORDERED: PYRIDIUM PO (04:42)
[2017-05-06] MEDS ORDERED: RISA-BID CAPLE1 EAC1 PO (04:43)
[2017-05-06] MEDS ORDERED: MIRALAX17 G2 PO (04:46)
[2017-05-06] MEDS ORDERED: FAST RELIEF LAX10 MG PR (04:48)
[2017-05-06] MEDS ORDERED: FENOGLIDE40 MG PO (04:50)
[2017-05-06] MEDS ORDERED: CERTA VITE9 MG/15 ML PO (04:50)
[2017-05-06] MEDS ORDERED: LYRICA75 MG PO (04:51)
[2017-05-06] MEDS ORDERED: LEVOTHYROXINE50 MCG PO (04:51)
[2017-05-06] MEDS ORDERED: MELATONIN3 MG PO ×2 (04:52→09:28)
[2017-05-06] MEDS ORDERED: SENNA8.6 M1 PO (04:54)
[2017-05-06] MEDS ORDERED: OMEPRAZOLE20 M1 PO (04:54)
[2017-05-06] MEDS ORDERED: SILACE60 MG/15 M PO ×2 (04:55→09:30)
[2017-05-06] MEDS ORDERED: VITAMIN C500 M7 PO (04:59)
[2017-05-06] MEDS ORDERED: VITAMIN D31000 UNIT PO ×2 (05:00→09:30)
[2017-05-06] MEDS ORDERED: BISACODYL1 GM PR (09:23)
[2017-05-06] MEDS ORDERED: CERTAVITE PO (09:24)
[2017-05-06] MEDS ORDERED: FENOFIBRATE48 MG PO (09:24)
[2017-05-06] MEDS ORDERED: HEPARIN LO (09:25)
[2017-05-06] MEDS ORDERED: GAS RELIEF40 MG/0.1 PO (09:25)
[2017-05-06] MEDS ORDERED: SYNTHROID25 MCG PO (09:25)
[2017-05-06] MEDS ORDERED: LYRICA PO (09:25)
[2017-05-06] MEDS ORDERED: FISH OIL 1,0001 EAC3 PO (09:25)
[2017-05-06] MEDS ORDERED: PRILOSEC PO (09:28)
[2017-05-06] MEDS ORDERED: MIRALAX119 GM PO (09:29)
[2017-05-06] MEDS ORDERED: VITAMIN C500 MG PO (09:30)
[2017-05-06] MEDS ORDERED: MIRALAX17 GM PO (09:30)
[2017-05-06] MEDS ORDERED: ZYRTEC10 M2 PO (09:31)
[2017-05-06] MEDS ORDERED: TYLENOL #3 PO (09:31)
[2017-05-06] MEDS ORDERED: SALINE NOSE SPR45 M1 (09:32)
[2017-05-06] MEDS ORDERED: ENEMA BOTTLE1 EACH PR (09:32)
[2017-05-06] MEDS ORDERED: [UNRECOGNIZED DRUG - OTHER] TOP (09:33)
[2017-05-06] MEDS ORDERED: NEOSPORIN TOP (09:33)
[2017-05-06] MEDS ORDERED: PATIENT'S PHARMACY (09:34)
== END 2017-02-23 15:06 | DRG 306 ==
LOC: CED 01:24 → CEDOF 06:20 → C2A 06:20 → CEDOF 07:07 → CED 07:07 → C2A 09:30 → CEDOF 09:30 → C2A 02-20 20:12
PROVIDERS: Emergency Medicine; Hospitalist; Internal Medicine; Nurse Practitioner Family; Physician Assistant Medical
PROC: B24BZZZ Ultrasonography of Heart with Aorta (ICD-10-PCS; 2017-02-19)
PROC: 02HV33Z Insertion of Infusion Device into Superior Vena Cava, Percutaneous Approach (ICD-10-PCS; principal; 2017-02-23)
PROC: B548ZZA Ultrasonography of Superior Vena Cava, Guidance (ICD-10-PCS; 2017-02-23)
DX: I35.8 Other nonrheumatic aortic valve disorders (principal); J18.9 Pneumonia, unspecified organism; F73 Profound intellectual disabilities; D63.8 Anemia in other chronic diseases classified elsewhere; Z68.1 Body mass index [BMI] 19.9 or less, adult; Y95 Nosocomial condition; B95.62 Methicillin resistant Staphylococcus aureus infection as the cause of diseases classified elsewhere; G40.909 Epilepsy, unspecified, not intractable, without status epilepticus; E78.5 Hyperlipidemia, unspecified; H54.0 Blindness, both eyes; R63.6 Underweight; Z87.440 Personal history of urinary (tract) infections
CPT/HCPCS: 36415; 51701; 71010; 76937; 77001; 80048; 80076; 80200; 80202; 81003; 82150; 82308; 82553; 83605; 83690; 83735; 84132; 84484; 85025; 85027; 87040; 87077; 87086; 87186; 92507; 92610; 93306; 96365; 96367; 99284; C1751; G8996-GN; G8997-GN; G8998-GN; J1642; J1644; J1650; J2543; J3260; J3370; J3475; J7042

== ENCOUNTER 2017-02-23 20:02 | Emergency (ER) | payer MEDICARE, OTHER ==
--- NOTE | ~2017-02-23 | EKG ---
PATIENT: MAINOR SALGUERO UNIT #: [id number] Ventricular Rate: 133 BPM Atrial Rate: 133 BPM P-R Interval: 118 ms QRS Duration: 84 ms Q-T Interval: 308 ms QTC Calculation(Bezet): 458 ms P [place]: 76 degrees Calculated R [place]: 77 degrees Calculated T [place]: 73 degrees Diagnosis Line: Sinus tachycardia Diagnosis Line: Nonspecific ST abnormality Diagnosis Line: Baseline wander Otherwise normal ECG Diagnosis Line: When compared with ECG of 12-NOV-2016 15:56, Diagnosis Line: Vent. rate has increased BY 56 BPM Diagnosis Line: Confirmed by CHANTALE RUIZ MD ([id number]) on 02/26/2017 Diagnosis Line: 7:53:34 AM INTERPRETING MD: JOSEPH HASSAN
--- NOTE | ~2017-02-23 | CR72 ---
[facility] A Service of [facility] RADIOLOGY TEXT RESULTS PATIENT: MAINOR SALGUERO LOCATION: [facility] : 43 UNIT #: [id number] AGE: [address]: Steven Garcia MD SEX: F ORDER DR: [id number] [facility] [address] [place], [place] [address] [id number] E MR#: [id number] Acc #: [id number] NAME: MAINOR SALGUERO : 1945 SEX: F STUDY DATE/TIME: 02/23/2017 20:41 UNIT: [facility] ROOM: STUDY DESCRIPTION: CR Chest Single View Portable Attending Physician: Steven Garcia M.D. Ordering Physician: Steven Garcia M.D. Primary Care Physician: Miguel Jimenez Sr., M.D. MEDICAL IMAGING REPORT This report is preliminary unless electronic signature is present EXAM Single view chest INDICATIONS Dyspnea. Shortness of air and cough. Vomiting. COMPARISON Single portable AP view chest compared with 02/18/2017. FINDINGS The heart and mediastinal contours are unchanged. There is background COPD. No focal consolidation. No pleural effusion. Left PICC terminates over the SVC. IMPRESSION Left PICC terminates over the SVC. No acute cardiopulmonary findings. Dictated by... Eloy Francois M.D. THIS IS AN ELECTRONICALLY VERIFIED REPORT Eloy Francois M.D. at 02/24/2017 3:08 PM YADI/arvind TD: 02/24/2017 12:12 JOB #: [id number] MEDICAL IMAGING REPORT Page 1 of 1 COPY
[~2017-02-23 20:02] MED LIST changes: +CIPRO HC OTIC S10 ML AD; +LYRICA75 MG PO
[2017-02-23 20:59] LABS: ARTERIAL BLD GAS O2 SATURATION 98.3 % (90.0-100.0); ARTERIAL BLOOD GAS CARBOXY HB 0.4 %sat (0.0-9.0); ARTERIAL BLOOD GAS HCO3 24.9 mmol/L; ARTERIAL BLOOD GAS MET HB 0.9 %sat (0.0-2.0); ARTERIAL BLOOD GAS PCO2 41.3 mmHg (35.0-45.0); ARTERIAL BLOOD GAS pH 7.388 (7.350-7.450)
[2017-02-23 21:02] LABS: ARTERIAL BLOOD GAS ALLEN TEST NORMAL; ARTERIAL BLOOD GAS ART SITE RIGHT RADIAL; ARTERIAL DRAW? YES
[2017-02-23 21:03] LABS: ARTERIAL BLOOD GAS DELIVERY ROOM AIR
[2017-02-23 21:26] LABS: BASOPHIL# 0.1 X10e3 (0-0.3); BASOPHIL% 0.7 % (0-2.5); EOSINOPHIL# 0.6 X10e3 (0-0.7); EOSINOPHIL% 4.1 % (0.0-7.0); HEMATOCRIT 39.6 % (35.0-45.0); LYMPHOCYTE# 1.8 X10e3 (1.0-3.5); LYMPHOCYTE% 12.6 % (17.0-45.0); MEAN CELL VOLUME 89.5 FL (83-96); MEAN CORPUSCULAR HEMOGLOBIN 29.4 PG (28-34); MEAN CORPUSCULAR HGB CONC 32.9 g/dL (30-36); MEAN PLATELET VOLUME 9.1 FL (6.5-11.5); MONOCYTE# 0.7 X10e3 (0-1.0); MONOCYTE% 4.6 % (3.0-12.0); PLATELET COUNT 317 X10e3 (140-420); RED BLOOD COUNT 4.43 X10e (3.90-5.30); RED CELL DISTRIBUTION WIDTH 13.7 % (11.0-15.5)
[2017-02-23 21:37] LABS: PARTIAL THROMBOPLASTIN TIME 23.4 SECONDS (23.5-31.3); PROTHROMBIN TIME (PATIENT) 10.9 SECONDS (10.0-11.7)
[2017-02-23 21:40] LABS: DIFF IND NO; WHITE BLOOD COUNT 14.1 X10e3 (4.0-10.5)
[2017-02-23 21:52] LABS: ALBUMIN SERUM 4.4 g/dL (3.5-5.0); ALKALINE PHOSPHATASE 82 U/L (32-92); ALT (SGPT) 17 U/L (10-40); AST (SGOT) 24 U/L (10-42); BILIRUBIN,TOTAL 0.7 mg/dL (0.2-2.0); BLOOD UREA NITROGEN 8 mg/dL (9-23); BUN/CREATININE RATIO 26.66; CALCIUM SERUM 9.8 mg/dL (8.4-10.2); CARBON DIOXIDE 24 mmol/L (22-31); CHLORIDE 105 mmol/L (100-111); CREATININE SERUM 0.3 mg/dL (0.6-1.4); GLOM FILT RATE Estimated 113.6 mL/min (>60); GLUCOSE FASTING 132 mg/dL (70-110); PROTEIN TOTAL SERUM 8.6 g/dL (6.0-8.3); SODIUM 138 mmol/L (135-145)
[2017-02-23 21:54] LABS: POC - CKMB 1.3 ng/mL (0.0-7.9); POC - TROPONIN <0.05 ng/mL (<=0.05)
[2017-02-23 21:55] LABS: BILIRUBIN, DIRECT <0.1 mg/dL (0.0-0.2); BILIRUBIN,INDIRECT 0.6 mg/dL (0.0-0.9)
[2017-05-06] MEDS ORDERED: UTI-STAT L3875 MG/31 PO (04:37)
[2017-05-06] MEDS ORDERED: FIBER-STAT15 GM/30 M PO (04:38)
[2017-05-06] MEDS ORDERED: TOBRAMYCIN40 MG/1 ML IV (04:40)
[2017-05-06] MEDS ORDERED: AUGMENTIN PO (04:41)
[2017-05-06] MEDS ORDERED: PYRIDIUM PO (04:42)
[2017-05-06] MEDS ORDERED: RISA-BID CAPLE1 EAC1 PO (04:43)
[2017-05-06] MEDS ORDERED: MIRALAX17 G2 PO (04:46)
[2017-05-06] MEDS ORDERED: FAST RELIEF LAX10 MG PR (04:48)
[2017-05-06] MEDS ORDERED: FENOGLIDE40 MG PO (04:50)
[2017-05-06] MEDS ORDERED: CERTA VITE9 MG/15 ML PO (04:50)
[2017-05-06] MEDS ORDERED: LYRICA75 MG PO (04:51)
[2017-05-06] MEDS ORDERED: LEVOTHYROXINE50 MCG PO (04:51)
[2017-05-06] MEDS ORDERED: MELATONIN3 MG PO ×2 (04:52→09:28)
[2017-05-06] MEDS ORDERED: SENNA8.6 M1 PO (04:54)
[2017-05-06] MEDS ORDERED: OMEPRAZOLE20 M1 PO (04:54)
[2017-05-06] MEDS ORDERED: SILACE60 MG/15 M PO ×2 (04:55→09:30)
[2017-05-06] MEDS ORDERED: VITAMIN C500 M7 PO (04:59)
[2017-05-06] MEDS ORDERED: VITAMIN D31000 UNIT PO ×2 (05:00→09:30)
[2017-05-06] MEDS ORDERED: BISACODYL1 GM PR (09:23)
[2017-05-06] MEDS ORDERED: CERTAVITE PO (09:24)
[2017-05-06] MEDS ORDERED: FENOFIBRATE48 MG PO (09:24)
[2017-05-06] MEDS ORDERED: GAS RELIEF40 MG/0.1 PO (09:25)
[2017-05-06] MEDS ORDERED: HEPARIN LO (09:25)
[2017-05-06] MEDS ORDERED: LYRICA PO (09:25)
[2017-05-06] MEDS ORDERED: SYNTHROID25 MCG PO (09:25)
[2017-05-06] MEDS ORDERED: FISH OIL 1,0001 EAC3 PO (09:25)
[2017-05-06] MEDS ORDERED: PRILOSEC PO (09:28)
[2017-05-06] MEDS ORDERED: MIRALAX119 GM PO (09:29)
[2017-05-06] MEDS ORDERED: MIRALAX17 GM PO (09:30)
[2017-05-06] MEDS ORDERED: VITAMIN C500 MG PO (09:30)
[2017-05-06] MEDS ORDERED: TYLENOL #3 PO (09:31)
[2017-05-06] MEDS ORDERED: ZYRTEC10 M2 PO (09:31)
[2017-05-06] MEDS ORDERED: ENEMA BOTTLE1 EACH PR (09:32)
[2017-05-06] MEDS ORDERED: SALINE NOSE SPR45 M1 (09:32)
[2017-05-06] MEDS ORDERED: [UNRECOGNIZED DRUG - OTHER] TOP (09:33)
[2017-05-06] MEDS ORDERED: NEOSPORIN TOP (09:33)
[2017-05-06] MEDS ORDERED: PATIENT'S PHARMACY (09:34)
== END 2017-02-23 22:56 | disposition home or self-care (01) ==
LOC: CED 20:02
PROVIDERS: Emergency Medicine
DX: J44.1 Chronic obstructive pulmonary disease with (acute) exacerbation (principal); E87.6 Hypokalemia
CPT/HCPCS: 36415; 36600; 71010; 80048; 80076; 82553; 82803; 83605; 83880; 84484; 85025; 85610; 85730; 87040; 93005; 94640; 96360; 99285

== ENCOUNTER 2017-03-03 01:54 | Emergency (ER) | payer MEDICARE, OTHER ==
[~2017-03-03] VITALS: Ht 144.8 cm; Wt 37.6 kg
--- NOTE | ~2017-03-03 | CT4 ---
[facility] A Service of [facility] RADIOLOGY TEXT RESULTS PATIENT: MAINOR SALGUERO LOCATION: [facility] : 43 UNIT #: [id number] AGE: [address]: Fan Bob DO SEX: F ORDER DR: [id number] [facility] [address] [place], [place] [address] [id number] E MR#: [id number] Acc #: [id number] NAME: MAINOR SALGUERO : 1945 SEX: F STUDY DATE/TIME: 03/03/2017 2:39 UNIT: [facility] ROOM: STUDY DESCRIPTION: CT Abd and Pelv Wo Cont Attending Physician: Fan Bob D.O. Ordering Physician: Fan Bob D.O. Primary Care Physician: Miguel Jimenez Sr., M.D. MEDICAL IMAGING REPORT This report is preliminary unless electronic signature is present EXAM CT abdomen and pelvis without contrast INDICATIONS Abdominal distension and pain for the past [address] of the abdomen and pelvis. COMPARISON STUDIES 07/15/[address] exam was performed with one or more of the following radiation dose reduction techniques: automatic exposure control, adjustment of mA and/or kV according to patient size, and iterative reconstruction. FINDINGS Abdomen with contrast: Included lung bases are predominately clear. There is thickening and distension of the distal esophagus similar to the prior. Large colonic stool burden. Diffuse prominence of small bowel loops which are significantly air-filled. Appearance is similar to the prior. The liver, gallbladder, spleen kidneys and adrenal glands pancreas show no acute abnormality. Pelvis without contrast. No pelvic mass or fluid. No aggressive appearing bone lesion. IMPRESSION 1. Diffuse air-filled distension of small bowel loops similar to the [facility] A Service of [facility] RADIOLOGY TEXT RESULTS PATIENT: MAINOR SALGUERO LOCATION: [facility] : 43 UNIT #: [id number] AGE: [address]: Hottman,Fan M DO SEX: F ORDER DR: prior study. 2. Large colonic stool burden. Dictated by... Miguel Bobo M.D. THIS IS AN ELECTRONICALLY VERIFIED REPORT Miguel Bobo M.D. at 03/03/2017 9:50 PM SRI/hansa TD: 03/03/2017 13:43 JOB #: [id number] MEDICAL IMAGING REPORT Page 1 of 1 COPY
[2017-03-03] MEDS ORDERED: OMEGA 3 1,0001 EACH PO (02:05)
[2017-03-03] MEDS ORDERED: APAP325 M1 PO (02:06)
[2017-03-03] MEDS ORDERED: ZYRTEC10 M1 PO (02:07)
[2017-03-03] MEDS ORDERED: FEVERALL650 MG PR (02:07)
[2017-03-03] MEDS ORDERED: DEEP SEA NASAL SPRAY (02:08)
[2017-03-03] MEDS ORDERED: [UNRECOGNIZED DRUG - MIXTURE] (02:10)
[2017-03-03] MEDS ORDERED: [UNRECOGNIZED DRUG - OTHER] PR (02:12)
[2017-03-03 03:31] LABS: BASOPHIL# 0.1 X10e3 (0-0.3); BASOPHIL% 0.7 % (0-2.5); EOSINOPHIL# 0.9 X10e3 (0-0.7); EOSINOPHIL% 10.3 % (0.0-7.0); HEMATOCRIT 35.1 % (35.0-45.0); HEMOGLOBIN 11.3 gm/dL (12.0-16.0); LYMPHOCYTE# 2.2 X10e3 (1.0-3.5); LYMPHOCYTE% 25.2 % (17.0-45.0); MEAN CELL VOLUME 90.6 FL (83-96); MEAN CORPUSCULAR HEMOGLOBIN 29.1 PG (28-34); MEAN CORPUSCULAR HGB CONC 32.1 g/dL (30-36); MONOCYTE# 0.5 X10e3 (0-1.0); MONOCYTE% 6.2 % (3.0-12.0); NEUTROPHIL% 57.6 % (40-75); PLATELET COUNT 293 X10e3 (140-420); RED BLOOD COUNT 3.87 X10e (3.90-5.30); RED CELL DISTRIBUTION WIDTH 13.7 % (11.0-15.5); WHITE BLOOD COUNT 8.6 X10e3 (4.0-10.5)
[2017-03-03 03:33] LABS: DIFF IND NO
[2017-03-03 03:52] LABS: ALBUMIN SERUM 3.7 g/dL (3.5-5.0); BILIRUBIN, DIRECT 0.1 mg/dL (0.0-0.2); BILIRUBIN,INDIRECT 0.1 mg/dL (0.0-0.9); BILIRUBIN,TOTAL 0.2 mg/dL (0.2-2.0); BUN/CREATININE RATIO 37.5; CALCIUM SERUM 9.3 mg/dL (8.4-10.2); CREATININE SERUM 0.4 mg/dL (0.6-1.4); GLOM FILT RATE Estimated 103.4 mL/min (>60); POTASSIUM 4.9 mmol/L (3.5-5.1); PROTEIN TOTAL SERUM 7.5 g/dL (6.0-8.3)
[2017-03-03 04:24] LABS: POC - CKMB 1.2 ng/mL (0.0-7.9); POC - TROPONIN <0.05 ng/mL (<=0.05)
[2017-03-03 06:07] LABS: URINE SOURCE CLEAN CATCH
[2017-03-03 06:11] LABS: URINE APPEARANCE CLEAR; URINE BILIRUBIN NEG (NEG); URINE BLOOD NEG (NEG); URINE COLOR YELLOW; URINE GLUCOSE NEG (NEG); URINE KETONE NEG (NEG); URINE LEUKOCYTE ESTERASE 2+ (NEG); URINE NITRATE NEG (NEG); URINE PROTEIN NEG (NEG); URINE SPECIFIC GRAVITY 1.012 (1.003-1.035); URINE UROBILINOGEN 0.2 MG/DL (NEG)
[2017-03-03 06:13] LABS: CULTURE INDICATED? YES; U HYALINE CASTS AUWI 0-2 /[LPF]; URINE BACTERIA AUWI NEG (NEGATIVE); URINE SQUAMOUS EPITHELIAL CELL OCC /[HPF]
[2017-05-06] MEDS ORDERED: UTI-STAT L3875 MG/31 PO (04:37)
[2017-05-06] MEDS ORDERED: FIBER-STAT15 GM/30 M PO (04:38)
[2017-05-06] MEDS ORDERED: TOBRAMYCIN40 MG/1 ML IV (04:40)
[2017-05-06] MEDS ORDERED: AUGMENTIN PO (04:41)
[2017-05-06] MEDS ORDERED: PYRIDIUM PO (04:42)
[2017-05-06] MEDS ORDERED: RISA-BID CAPLE1 EAC1 PO (04:43)
[2017-05-06] MEDS ORDERED: MIRALAX17 G2 PO (04:46)
[2017-05-06] MEDS ORDERED: FAST RELIEF LAX10 MG PR (04:48)
[2017-05-06] MEDS ORDERED: FENOGLIDE40 MG PO (04:50)
[2017-05-06] MEDS ORDERED: CERTA VITE9 MG/15 ML PO (04:50)
[2017-05-06] MEDS ORDERED: LEVOTHYROXINE50 MCG PO (04:51)
[2017-05-06] MEDS ORDERED: LYRICA75 MG PO (04:51)
[2017-05-06] MEDS ORDERED: MELATONIN3 MG PO ×2 (04:52→09:28)
[2017-05-06] MEDS ORDERED: SENNA8.6 M1 PO (04:54)
[2017-05-06] MEDS ORDERED: OMEPRAZOLE20 M1 PO (04:54)
[2017-05-06] MEDS ORDERED: SILACE60 MG/15 M PO ×2 (04:55→09:30)
[2017-05-06] MEDS ORDERED: VITAMIN C500 M7 PO (04:59)
[2017-05-06] MEDS ORDERED: VITAMIN D31000 UNIT PO ×2 (05:00→09:30)
[2017-05-06] MEDS ORDERED: BISACODYL1 GM PR (09:23)
[2017-05-06] MEDS ORDERED: CERTAVITE PO (09:24)
[2017-05-06] MEDS ORDERED: FENOFIBRATE48 MG PO (09:24)
[2017-05-06] MEDS ORDERED: LYRICA PO (09:25)
[2017-05-06] MEDS ORDERED: SYNTHROID25 MCG PO (09:25)
[2017-05-06] MEDS ORDERED: FISH OIL 1,0001 EAC3 PO (09:25)
[2017-05-06] MEDS ORDERED: GAS RELIEF40 MG/0.1 PO (09:25)
[2017-05-06] MEDS ORDERED: HEPARIN LO (09:25)
[2017-05-06] MEDS ORDERED: PRILOSEC PO (09:28)
[2017-05-06] MEDS ORDERED: MIRALAX119 GM PO (09:29)
[2017-05-06] MEDS ORDERED: MIRALAX17 GM PO (09:30)
[2017-05-06] MEDS ORDERED: VITAMIN C500 MG PO (09:30)
[2017-05-06] MEDS ORDERED: TYLENOL #3 PO (09:31)
[2017-05-06] MEDS ORDERED: ZYRTEC10 M2 PO (09:31)
[2017-05-06] MEDS ORDERED: ENEMA BOTTLE1 EACH PR (09:32)
[2017-05-06] MEDS ORDERED: SALINE NOSE SPR45 M1 (09:32)
[2017-05-06] MEDS ORDERED: NEOSPORIN TOP (09:33)
[2017-05-06] MEDS ORDERED: [UNRECOGNIZED DRUG - OTHER] TOP (09:33)
[2017-05-06] MEDS ORDERED: PATIENT'S PHARMACY (09:34)
== END 2017-03-03 12:04 ==
LOC: CED 01:54
PROVIDERS: Emergency Medicine
DX: R14.0 Abdominal distension (gaseous) (principal); E87.6 Hypokalemia; Z88.8 Allergy status to other drugs, medicaments and biological substances; Z79.899 Other long term (current) drug therapy
CPT/HCPCS: 36415; 74176; 80048; 80076; 81003; 82553; 83690; 84484; 85025; 87086; 87088; 87186; 96374; 99285; J0696

== ENCOUNTER → 2017-03-05 | Outpatient (CLI) | payer MEDICARE, OTHER ==
[~2017-03-05] MED LIST changes: +APAP325 M1 PO; +BISACODYL1 GM PR; +CERTA VITE9 MG/15 ML PO; +CERTAVITE PO; +DEEP SEA NASAL SPRAY; +ENEMA BOTTLE1 EACH PR; +FAST RELIEF LAX10 MG PR; +FENOGLIDE40 MG PO; +FIBER-STAT15 GM/30 M PO; +FISH OIL 1,0001 EAC3 PO; +HEPARIN LO; +LEVOTHYROXINE50 MCG PO; +LYRICA PO; +MELATONIN3 MG PO; +MIRALAX119 GM PO; +MIRALAX17 G2 PO; +NEOSPORIN TOP; +OMEGA 3 1,0001 EACH PO; +PATIENT'S PHARMACY; +PYRIDIUM PO; +RISA-BID CAPLE1 EAC1 PO; +SALINE NOSE SPR45 M1; +SILACE60 MG/15 M PO; +SYNTHROID25 MCG PO; +TOBRAMYCIN40 MG/1 ML IV; +UTI-STAT L3875 MG/31 PO; +VITAMIN C500 M7 PO; +VITAMIN D31000 UNIT PO; +ZYRTEC10 M1 PO; +ZYRTEC10 M2 PO; +[UNRECOGNIZED DRUG - MIXTURE]; +[UNRECOGNIZED DRUG - OTHER] PR; +[UNRECOGNIZED DRUG - OTHER] TOP
--- NOTE | ~2017-03-05 | XA231 ---
[facility] A Service of [facility] RADIOLOGY TEXT RESULTS PATIENT: MAINOR SALGUERO LOCATION: [facility] : 43 UNIT #: [id number] AGE: [address]: Miguel Jimenez MD SEX: F ORDER DR: [id number] [facility] [address] [place], [place] [address] [id number] O MR#: [id number] Acc #: [id number] NAME: MAINOR SALGUERO : 1945 SEX: F STUDY DATE/TIME: 03/05/2017 10:10 UNIT: [facility] ROOM: STUDY DESCRIPTION: XA Consult Attending Physician: Miguel Jimenez Sr., M.D. Referring Physician: Miguel Jimenez Sr., M.D. Ordering Physician: Miguel Jimenez Sr., M.D. Primary Care Physician: Miguel Jimenez Sr., M.D. MEDICAL IMAGING REPORT This report is preliminary unless electronic signature is present EXAM PICC line. HISTORY This patient underwent placement of a left-sided PICC line on February 23, 2017. Reportedly the PICC line has not been working and the patient was referred for a new PICC line placement. FINDINGS The patient's overlying dressing was removed from the PICC line and it was found to flush and aspirate easily. A single fluoroscopic image was obtained and there is noted to be terminating within the superior vena cava although it does appear to have retracted slightly when compared to the February 23 post placement image, [place] was contacted and was told that the PICC line was ready to use. I suspect it was probably not functioning properly as it was kinked with the dressing. Total fluoroscopy time was 0.1 minutes and a single fluoroscopic image was obtained. IMPRESSION The patient's left-sided PICC line was likely not nonfunctioning, as it was kinked by overlying dressing material. Upon removal of dressing material it flushed and aspirated easily and is ready for immediate use. Dictated by... Modesta Woodson M.D. THIS IS AN ELECTRONICALLY VERIFIED REPORT Modesta Woodson M.D. at 03/06/2017 5:50 PM AFF/dj TD: 03/06/2017 10:49 JOB #: [id number] [facility] A Service of [facility] RADIOLOGY TEXT RESULTS PATIENT: MAINOR SALGUERO [id number] 43 UNIT #: [id number] AGE: [address]: Miguel Jimenez MD SEX: F ORDER DR: MEDICAL IMAGING REPORT Page 1 of 1 COPY
== END | disposition home or self-care (01) ==
LOC: CIVR 09:44
DX: T82.594A Other mechanical complication of infusion catheter, initial encounter (principal); R14.0 Abdominal distension (gaseous)
CPT/HCPCS: 76140; J1642

== ENCOUNTER → 2017-03-10 | Outpatient (CLI) | payer MEDICARE, OTHER ==
--- NOTE | ~2017-03-10 | XA166 ---
[facility] A Service of [facility] & [facility] RADIOLOGY TEXT RESULTS PATIENT: MAINOR SALGUERO LOCATION: [facility] : 43 UNIT #: [id number] AGE: [address]: CHUY HOFFMANN SEX: F ORDER DR: [id number] [facility] [address] [place], [place] [address] [id number] O MR#: [id number] Acc #: [id number] NAME: MAINOR SALGUERO : 1945 SEX: F STUDY DATE/TIME: 03/10/2017 14:03 UNIT: [facility] ROOM: STUDY DESCRIPTION: XA PICC Line Placement WO Port Attending Physician: Chuy Hoffmann Referring Physician: Miguel Jimenez Sr., M.D. Primary Care Physician: Miguel Jimenez Sr. MMargarita MEDICAL IMAGING REPORT This report is preliminary unless electronic signature is present EXAM Left PICC line replacement HISTORY Ms. Salguero is a 71-year-old [place] patient who underwent PICC line placement on February 23, 2017 for IV access for IV antibiotics for pneumonia. FINDINGS The procedure was explained to the patient's customer service representative teacher including risks, benefits potential complications potential for alternative forms of treatment. Informed consent was obtained prior to initiating procedure a formal time-out procedure was performed. Using all elements of maximal sterile barrier technique including hand hygiene caps sterile gowns and gloves and masks the left arm was prepped with 2% Chlorhexidine for cutaneous antisepsis and covered with a large sterile sheet. Initial family helper image showed the preexisting catheter appropriately positioned within the superior vena cava. Wire was advanced through this catheter which was retracted over the wire a peel-away sheath was advanced over the wire new catheter was measured and trimmed was advanced over the wire and positioned within the superior vena cava and its position was confirmed with radiographic image. It flushed and aspirated easily total fluoroscopy time was 0.1 minutes AK was 1 mGy. IMPRESSION Successful exchange of this patient's preexisting left sided PICC line for a new catheter which terminates within the superior vena cava fluoroscopy was used during this procedure and permanent images were saved. Dictated by... Modesta Woodson M.D. THIS IS AN ELECTRONICALLY VERIFIED REPORT [facility] A Service of [facility] RADIOLOGY TEXT RESULTS PATIENT: MAINOR SALGUERO LOCATION: [facility] : 43 UNIT #: [id number] AGE: [address]: CHUY HOFFMANN SEX: F ORDER DR: Modesta Woodson M.D. at 03/12/2017 5:06 PM AFF/rnr TD: 03/12/2017 12:46 JOB #: [id number] MEDICAL IMAGING REPORT Page 1 of 1 COPY
== END | disposition home or self-care (01) ==
LOC: CIVR 13:25
DX: T82.898A Other specified complication of vascular prosthetic devices, implants and grafts, initial encounter (principal); I33.0 Acute and subacute infective endocarditis; B95.62 Methicillin resistant Staphylococcus aureus infection as the cause of diseases classified elsewhere; Z79.2 Long term (current) use of antibiotics
CPT/HCPCS: 77001; 80202; C1751; J1642

== ENCOUNTER → 2017-03-20 | Outpatient (CLI) | payer MEDICARE, OTHER ==
--- NOTE | ~2017-03-20 | XA237 ---
[facility] A Service of [facility] RADIOLOGY TEXT RESULTS PATIENT: MAINOR SALGUERO LOCATION: [facility] : 41 UNIT #: [id number] AGE: [address]: Miguel Jimenez MD SEX: F ORDER DR: [id number] [place] [id number] [facility]. [place], [place] [address] [id number] O MR#: [id number] Acc #: [id number] NAME: MAINOR SALGUERO : 1945 SEX: F STUDY DATE/TIME: 03/20/2017 14:43 UNIT: [facility] ROOM: STUDY DESCRIPTION: XA PICC Line Replcmnt Same Sit Attending Physician: Miguel Jimenez Sr., M.D. Referring Physician: Miguel Jimenez Sr., M.D. Ordering Physician: Miguel Jimenez Sr., M.D. Primary Care Physician: Miguel Jimenez Sr., M.D. MEDICAL IMAGING REPORT This report is preliminary unless electronic signature is present PROCEDURE PICC line exchange INDICATIONS No blood return from PICC line. The fluoro time 0.1 minutes. Reference air kerma is 1 mGy. FINDINGS Risks, benefits, alternatives and procedure were discussed the patient's family sales representative facility services and informed consent was obtained. In the procedure room, time-out was performed confirming correct patient and procedure. All elements of maximum sterile-barrier technique utilized according to guidelines appropriate for the procedure. TECHNIQUE/FINDINGS Skin of the left upper extremity and the PICC line were all prepped and draped in the usual sterile fashion. Next, using full standard sterile barrier technique including sterile caps, gowns, gloves, mass, drapes, 2% Chlorhexidine percutaneous antisepsis, an 018 guidewire was advanced through the existing PICC line. PICC line was removed exchanged for a new PICC line. This time cut a little bit longer. This was advanced over the guide wire. The tip of the PICC line is located in good position at the cavoatrial junction. It is a 4-Japanese 41 cm single-lumen PICC line. The PICC line ready for immediate use. There was "good blood return. IMPRESSION Successful left arm PICC line exchange. Dictated by... [facility] A Service of [facility] RADIOLOGY TEXT RESULTS PATIENT: MAINOR SALGUERO LOCATION: [facility] #: [id number] : 41 UNIT #: [id number] AGE: [address]: Miguel Jimenez MD SEX: F ORDER DR: nAgus Madrid M.D. THIS IS AN ELECTRONICALLY VERIFIED REPORT Angus Madrid M.D. at 03/23/2017 12:15 PM Samuel TD: 03/20/2017 22:36 JOB #: [id number] MEDICAL IMAGING REPORT Page 1 of 1 COPY
== END | disposition home or self-care (01) ==
LOC: CIVR 14:00
DX: Z45.2 Encounter for adjustment and management of vascular access device (principal); I38 Endocarditis, valve unspecified; Z79.2 Long term (current) use of antibiotics; D64.9 Anemia, unspecified
CPT/HCPCS: 77001; C1751; J1642

== ENCOUNTER → 2017-03-31 | Outpatient (CLI) | payer MEDICARE, OTHER | END | disposition home or self-care (01) | LOC: CECH 10:45 | DX: I38 Endocarditis, valve unspecified (principal) | CPT/HCPCS: 80202; 93306 ==